=== PATIENT | male | born 1975 | race African-American/Black ===

== ENCOUNTER 2017-10-01 20:05 | Emergency (ER) | payer SELFPAY ==
[2017-10-01 20:07] VITALS: BP 166/81; PULSE 64; RESP 17; TEMP 36.7; O2SAT 99; BMI 26.6
[2017-10-01 20:46] LABS: Absolute Neutrophil Count 4.5 X10^3/uL (2.0-7.7); Basophil# 0.02 X10^3/uL; Basophil% 0.2 % (0-1); Eosinophil# 0.17 X10^3/uL; Hematocrit 45.7 % (40-54); Hemoglobin 15.6 g/dl (13.0-16.5); Lymphocyte % 38.8 % (19-41); Mean Corp Hgb Conc 34.1 g/gl (32-36); Mean Corpuscular Hgb 29.6 pg (27.0-32.0); Mean Corpuscular Volume 86.7 fL (80-94); Mean Platelet Vol. 9.7 fl (6.2-12.0); Monocyte# 0.46 X10^3/uL; Monocyte% 5.4 % (0-10); Neutrophil # 4.54 X10^3/uL (2.7-7.7); Neutrophil % 53.4 % (47-70); Platelet Count 326 K/mm3 (150-450); RBC Distribution Width CV 14.1 % (11.6-14.6); RBC Distribution Width SD 44.5 fl (35.1-43.9); Red Blood Count 5.27 M/mm3 (4.6-6.2); White Blood Count 8.5 K/mm3 (4.4-11.0)
[2017-10-01 20:47] LABS: POSITIVE COUNT NO; POSITIVE DIFFERENTIAL NO; POSITIVE MORPHOLOGY NO
[2017-10-01] MEDS: 0.9% Normal Saline 1,000 ML 1000 ML IV (20:47)
[2017-10-01] MEDS: Ondansetron 4 MG/2 ML Vial IV (20:47)
[2017-10-01 21:12] LABS: ALB/GLOB Ratio 1.1 RATIO (0.9-2.4); AST(SGOT) 37 U/L (15-37); Alanine Aminotransfer ALT/SGPT 48 U/L (16-61); Alkaline Phosphatase 100 U/L (45-117); Anion Gap 7 (5-15); BUN 9 mg/dL (7-18); BUN/Creat Ratio 8.2 RATIO (10-20); Calcium,Total 8.9 mg/dL (8.5-10.1); Chloride 104 mmol/L (98-107); EST Glomerular Filtration Rate 79 mL/min (>60); Est Glom Filt Rate - Afr Amer 95 mL/min (>60); Estimated Creatinine Clearance 89.27 ml/min; Globulin 3.7 g/dL (2.2-4.2); Glucose 118 mg/dL (74-106); Lipase 115 U/L (73-393); Potassium 4.8 mmol/L (3.5-5.1); Protein, Total 7.7 g/dL (6.4-8.2); Sodium Level 138 mmol/L (136-145)
[2017-10-01] MEDS: Dicyclomine 20 MG/2 ML Vial IM (21:47)
--- NOTE | 2017-10-01 22:09 | ED.VISSUMM ---
- ER Visit Summary Date of Service: 10/01/17 Chief Complaint: Abdominal pain History of Present Illness: The patient is a 41 M who presents with left upper quadrant abdominal pain that began yesterday. Patient states the pain is throbbing. Patient states the pain is over the left upper quadrant. Patient admits to some nausea and vomiting. Patient denies any hematemesis or coffee-ground emesis. Patient states the emesis is undigested food and stomach contents. Patient denies any diarrhea. Patient denies any melena or hematochezia. Patient denies any dysuria or urgency. Patient denies any flank pain. Patient denies any fevers or chills. Patient states he has been unable to eat anything today due to the pain and vomiting. Physical Examination: Vital signs are stable. Patient is afebrile. Patient is in no acute distress. Oral mucosa is pink and moist. Neck is supple. Trachea is midline. There is no JVD or lymphadenopathy noted. Heart was regular rate and rhythm. Lungs are clear and equal bilateral. There is good respiratory effort noted. Abdomen is soft. Bowel sounds are normal. There is left upper quadrant tenderness. There is no rebound or guarding noted. Cranial nerves II through XII are intact. There are no focal motor or sensory deficits noted. Test Results: CBC and comprehensive metabolic profile within normal limits. Lipase is normal. Emergency Department Course and Treatment: Patient was given IV fluids here. Patient was given Zofran and Bentyl. Patient felt better on reevaluation. Patient was given prescriptions for Bentyl and Zofran. Patient was instructed to follow-up with his primary care physician in 7-10 days. Patient was instructed to start with a liquid diet and advance to a bland diet and back to a regular diet as he starts to feel better. Patient understood and was agreeable with the plan. All questions were answered. Disposition: Discharge home Impression: Abdominal pain This note was generated with [employer] dictation software. It may contain incorrect words, spelling, and punctuation that were not noted in review of the chart prior to signing ED Disposition - Plan for ED Patient: Disposition: Home or Assisted Living Chief Complaint: Abd Pain Diagnosis: Left upper quadrant abdominal pain of unknown etiology Instructions: ED Abdominal Pain Unkn Cause Prescriptions: Ondansetron [Zofran Odt] 4 mg PO Q8H PRN PRN 4 Days #12 tab PRN Reason: Nausea/Vomiting Dicyclomine HCl [Bentyl] 10 mg PO ACHS PRN #20 cap PRN Reason: Gi Cramping Referrals: Care Physician,No Primary [Primary Care Provider] -
[2017-10-01 22:22] VITALS: BP 148/104; PULSE 68; RESP 17; O2SAT 98
[2017-10-01 22:25] VITALS: TEMP 36.4
--- NOTE | 2017-10-01 22:26 | ED.DCSUM_ITS ---
- ER Visit Summary Date of Service: 10/01/17 Chief Complaint: Abdominal pain History of Present Illness: The patient is a 41 M who presents with left upper quadrant abdominal pain that began yesterday. Patient states the pain is throbbing. Patient states the pain is over the left upper quadrant. Patient admits to some nausea and vomiting. Patient denies any hematemesis or coffee- ground emesis. Patient states the emesis is undigested food and stomach contents. Patient denies any diarrhea. Patient denies any melena or hematochezia. Patient denies any dysuria or urgency. Patient denies any flank pain. Patient denies any fevers or chills. Patient states he has been unable to eat anything today due to the pain and vomiting. Physical Examination: Vital signs are stable. Patient is afebrile. Patient is in no acute distress. Oral mucosa is pink and moist. Neck is supple. Trachea is midline. There is no JVD or lymphadenopathy noted. Heart was regular rate and rhythm. Lungs are clear and equal bilateral. There is good respiratory effort noted. Abdomen is soft. Bowel sounds are normal. There is left upper quadrant tenderness. There is no rebound or guarding noted. Cranial nerves II through XII are intact. There are no focal motor or sensory deficits noted. Test Results: CBC and comprehensive metabolic profile within normal limits. Lipase is normal. Emergency Department Course and Treatment: Patient was given IV fluids here. Patient was given Zofran and Bentyl. Patient felt better on reevaluation. Patient was given prescriptions for Bentyl and Zofran. Patient was instructed to follow-up with his primary care physician in 7-10 days. Patient was instructed to start with a liquid diet and advance to a bland diet and back to a regular diet as he starts to feel better. Patient understood and was agreeable with the plan. All questions were answered. Disposition: Discharge home Impression: Abdominal pain This note was generated with [employer] dictation software. It may contain incorrect words, spelling, and punctuation that were not noted in review of the chart prior to signing ED Disposition - Plan for ED Patient: Disposition: Home or Assisted Living Chief Complaint: Abd Pain Diagnosis: Left upper quadrant abdominal pain of unknown etiology Instructions: ED Abdominal Pain Unkn Cause Prescriptions: Ondansetron [Zofran Odt] 4 mg PO Q8H PRN PRN 4 Days #12 tab PRN Reason: Nausea/Vomiting Dicyclomine HCl [Bentyl] 10 mg PO ACHS PRN #20 cap PRN Reason: Gi Cramping Referrals: Care Physician,No Primary [Primary Care Provider] -
== END 2017-10-01 22:35 | disposition home or self-care (01) ==
PROVIDERS: Emergency Provider Emergency Medicine
DX: R10.12 Left upper quadrant pain (principal); R11.2 Nausea with vomiting, unspecified; J45.909 Unspecified asthma, uncomplicated; Z72.0 Tobacco use
CPT/HCPCS: 80053; 83690; 85025; 96361; 96372; 96374; 99284; J7030; J2405

== ENCOUNTER 2018-01-16 08:29 | Emergency (ER) | payer SELFPAY ==
[2018-01-16 08:30] VITALS: BP 127/91; PULSE 93; RESP 18; TEMP 36.7; O2SAT 96; BMI 25.8
--- NOTE | 2018-01-16 08:53 | ED.VISSUMM ---
- ER Visit Summary Date of Service: 01/16/18 Chief Complaint: Abdominal pain, nausea, vomiting History of Present Illness: The patient is a 42 M who presents with the above symptoms. He has had this episode for 3 days. He describes cramping and sharp pains in his left upper quadrant. Nothing makes it better or worse. He has had nausea with vomiting with it. Denies diarrhea but has had some constipation. No urinary symptoms. He has been seen here and at [facility] for the same thing. He was told he had an ulcer. He has been taking Carafate at home is not helping. He did not follow up with any physicians. He denies any fevers. Physical Examination: Vital signs reviewed. HEENT exam unremarkable. Heart is regular rate and rhythm without murmurs. Lungs are clear to auscultation. Abdomen is soft with tenderness in the left upper quadrant mildly. Extremities reveal no edema. Skin exam normal. Neurologic exam normal. Test Results: Laboratory studies are unremarkable except for hemoglobin of 18.4, potassium 3.3. Total bilirubin 1.6 Emergency Department Course and Treatment: Patient was given a GI cocktail and Zofran and feels better. I will add omeprazole to his Carafate. He will follow-up with his PCP Treatment Plan: [] Disposition: Discharge Impression: Abdominal pain This note was generated with [employer] dictation software. It may contain incorrect words, spelling, and punctuation that were not noted in review of the chart prior to signing ED Disposition - Plan for ED Patient: Chief Complaint: Nausea/Vomiting Referrals: Care Physician,No Primary [Primary Care Provider] -
[2018-01-16] MEDS: Ondansetron 4 MG/2 ML Vial IV (09:27)
[2018-01-16] MEDS: Mag Hydrox/Al Hydrox/Simeth 30 ML UDC PO (09:27)
[2018-01-16 10:02] LABS: AST(SGOT) 16 U/L (15-37); Alanine Aminotransfer ALT/SGPT 41 U/L (16-61); Albumin, Serum 4.7 g/dL (3.2-5.0); Alkaline Phosphatase 103 U/L (45-117); Anion Gap 12 (5-15); BUN 18 mg/dL (7-18); BUN/Creat Ratio 14.2 RATIO (10-20); Calcium,Total 9.8 mg/dL (8.5-10.1); Chloride 102 mmol/L (98-107); Creatinine, Serum 1.27 mg/dL (0.70-1.30); EST Glomerular Filtration Rate 66 mL/min (>60); Est Glom Filt Rate - Afr Amer 80 mL/min (>60); Estimated Creatinine Clearance 76.55 ml/min; Globulin 4.6 g/dL (2.2-4.2); Glucose 120 mg/dL (74-106); Lipase 137 U/L (73-393); Potassium 3.3 mmol/L (3.5-5.1); Protein, Total 9.3 g/dL (6.4-8.2); Sodium Level 136 mmol/L (136-145)
[2018-01-16 10:13] LABS: Absolute Lymphocyte Count 3.42 X10^3/ul (0.83-4.51); Absolute Neutrophil Count 5.4 X10^3/uL (2.0-7.7); Basophil# 0.02 X10^3/uL; Basophil% 0.2 % (0-1); Eosinophil# 0.03 X10^3/uL; Eosinophils% 0.3 % (0-5); Hemoglobin 18.4 g/dl (13.0-16.5); Lymphocyte # 3.42 X10^3/ul (4.0); Mean Corp Hgb Conc 36.1 g/gl (32-36); Mean Corpuscular Hgb 29.4 pg (27.0-32.0); Mean Corpuscular Volume 81.5 fL (80-94); Mean Platelet Vol. 9.7 fl (6.2-12.0); Monocyte# 0.88 X10^3/uL; Neutrophil # 5.39 X10^3/uL (2.7-7.7); Neutrophil % 55.2 % (47-70); Platelet Count 450 K/mm3 (150-450); RBC Distribution Width SD 41.9 fl (35.1-43.9); Red Blood Count 6.26 M/mm3 (4.6-6.2); White Blood Count 9.8 K/mm3 (4.4-11.0)
[2018-01-16 10:17] LABS: Differential Indicated SCAN CRITERIA MET; POSITIVE COUNT NO; POSITIVE DIFFERENTIAL NO; POSITIVE MORPHOLOGY YES
--- NOTE | 2018-01-16 10:45 | ED.DEP ---
ED Disposition - Plan for ED Patient: Disposition: Home or Assisted Living Chief Complaint: Nausea/Vomiting Instructions: ED Nausea Vomiting Prescriptions: Omeprazole [Prilosec] 20 mg PO DAILY #30 cap Referrals: Care Physician,No Primary [Primary Care Provider] - Emmy Zacarias MD [STAFF PHYSICIAN] -
[2018-01-16 11:23] VITALS: BP 137/98; PULSE 84; RESP 16; O2SAT 98
== END 2018-01-16 11:24 | disposition home or self-care (01) ==
PROVIDERS: Emergency Provider Emergency Medicine
DX: R10.9 Unspecified abdominal pain (principal); R11.2 Nausea with vomiting, unspecified; J45.909 Unspecified asthma, uncomplicated
CPT/HCPCS: 80053; 83690; 85025; 96374; 99285; A4216; J2405

== ENCOUNTER 2018-05-02 11:41 | Emergency (ER) | payer SELFPAY ==
[2018-05-02 11:42] VITALS: BP 128/66; PULSE 73; RESP 16; TEMP 36.6; O2SAT 100; BMI 27.7
--- NOTE | 2018-05-02 12:46 | ED.DCSUM_ITS ---
- ER Visit Summary Date of Service: 05/02/18 Chief Complaint: Facial swelling History of Present Illness: The patient is a 42 M who states that for the past 1-2 weeks he has had pain in a right lower molar. He has not yet made a dental appointment. States now he is got swelling involving the mandible. No fevers. No pain with opening or closing his mouth Physical Examination: Afebrile vital signs stable Patient is focal gum swelling focal dental decay and tenderness on tooth per cussion of his right lower molar. There is no trismus. No floor the mouth swelling Emergency Department Course and Treatment: Patient will be prescribed Motrin and Pen-Vee K. He is to see dentistry as soon as possible. Impression: 1. Dental abscess This note was generated with [employer] dictation software. It may contain incorrect words, spelling, and punctuation that were not noted in review of the chart prior to signing ED Disposition - Plan for ED Patient: Disposition: Home or Assisted Living Chief Complaint: Dental Instructions: Dental Abscess Prescriptions: Ibuprofen [Motrin] 800 mg PO TID PRN PRN #20 tab PRN Reason: Pain Penicillin V Potassium 500 mg PO 4X/DAY #40 tab Additional Instructions: Follow up with dentistry as soon as possible
--- NOTE | 2018-05-02 12:57 | ED.RN ---
DISCHARGE INSTRUCTIONS GIVEN TO AND REVIEWED WITH PATIENT, PATIENT DENIES QUESTIONS OR CONCERNS AND VOICES UNDERSTANDING OF DISCHARGE INSTRUCTIONS. PT AMBULATES OUT OF ROOM WITHOUT DIFFICULTY.
== END 2018-05-02 12:58 | disposition home or self-care (01) ==
LOC: ED 12:51
PROVIDERS: Emergency Provider Emergency Medicine
DX: K04.7 Periapical abscess without sinus (principal); K02.9 Dental caries, unspecified
CPT/HCPCS: 99282

== ENCOUNTER 2019-07-22 05:10 | Emergency (ER) | payer BC, SELFPAY ==
[2019-07-22 05:11] VITALS: BP 138/87; PULSE 75; RESP 18; TEMP 37.1; O2SAT 98; BMI 32.1
[2019-07-22 05:13] VITALS: BP 138/87; PULSE 75; RESP 18; TEMP 37.1; O2SAT 98
--- NOTE | 2019-07-22 05:17 | ED.DCSUM_ITS ---
- ER Visit Summary Date of Service: 07/22/19 Chief Complaint: Tooth pain History of Present Illness: The patient is a 43 M who has tooth pain. He states it started early this morning. He noticed some left-sided facial swelling. He has not had a fever. The pain is mostly on the left-hand side. Worse with movement. He took 1 of his 's pain pills and it helped mildly. He does not have a dentist. He does have some broken teeth that he has not had looked at. He is not a smoker. Physical Examination: Vital signs are reviewed. Facial exam reveals some mild left-sided facial swelling. He has widespread dental decay inside of the mouth. He has a broken tooth that #14. This is tender in this area. There is no gingival abscesses. No Melvin's angina. Swallowing his secretions normally. Test Results: None performed Emergency Department Course and Treatment: Patient will be treated with penicillin and naproxen. I will give him dental referrals Treatment Plan: [] Disposition: Discharge Impression: Odontalgia This note was generated with [employer] dictation software. It may contain incorrect words, spelling, and punctuation that were not noted in review of the chart prior to signing ED Disposition - Plan for ED Patient: Disposition: Home or Assisted Living Instructions: Dental Pain Prescriptions: Naproxen [Naprosyn] 500 mg PO BID PRN #20 tab Transmission Status: Pending to [facility] [place] Penicillin V Potassium 500 mg PO 4X/DAY #40 tab Transmission Status: Pending to [facility] [place] Referrals: Care Physician,No Primary [Primary Care Provider] -
[2019-07-22] MEDS: Naproxen 500 MG Tablet PO (05:27)
[2019-07-22] MEDS: Penicillin Vk 250 MG Tablet 500 MG PO (05:27)
== END 2019-07-22 05:29 | disposition home or self-care (01) ==
LOC: ED 05:22
PROVIDERS: Emergency Provider Emergency Medicine
DX: K08.89 Other specified disorders of teeth and supporting structures (principal)
CPT/HCPCS: 99283

== ENCOUNTER 2019-09-13 08:34 | Emergency (ER) | payer BC, SELFPAY ==
[2019-09-13 08:36] VITALS: BP 137/92; PULSE 72; RESP 14; TEMP 36.3; O2SAT 98; BMI 26.8
[2019-09-13] MEDS: Dicyclomine 20 MG/2 ML Vial IM (09:03)
[2019-09-13] MEDS: Ondansetron 4 MG/2 ML Vial IV (09:03)
[2019-09-13] MEDS: 0.9% Normal Saline 1,000 ML 1000 ML IV (09:03)
--- NOTE | 2019-09-13 09:04 | ED.VIS.GEN ---
History of Present Illness Chief Complaint: Nausea/Vomiting Informant: Patient Onset: Days Context: Gradual Onset Timing: Continuous Current Severity: Moderate Maximum Severity: Moderate Narrative: The patient is a 43-year-old male no significant medical history that presents to the emergency department with nausea and vomiting. Patient states his symptoms been going on for the past 48 hours. He states that he does have reflux. He started taking Carafate which seemed to help with the pain, but has had persistent vomiting. He states he just cannot keep anything down. There is been no blood in the emesis. He denies any fevers or chills. He does have some abdominal cramping with vomiting, but no persistent pain. He denies any new foods or exposures. He has no history of inflammatory bowel disease. Prior similar symptoms: No Recent Illness/Hospitalization: No Past Medical History - Allergies and Home Meds Allergies/Adverse Reactions: Allergies No Known Allergies Allergy (Verified 09/13/19 08:36) Primary Care Physician: Care Physician,No Primary [Primary Care Provider] - Prior records reviewed: Yes Past Medical History: None Surgical History: noncontributory Smoking Status: Current some day smoker Review of Systems General: Denies: Chills, Fever, Sweats Eyes: Denies: Visual changes - bilaterally, Diplopia ENT: Denies: Rhinorrhea, Sore throat Cardiovascular: Denies: Chest pain, Palpitations Respiratory: Denies: Dyspnea, Cough, Dyspnea on exertion Gastrointestinal: Reports: Abdominal pain, Nausea, Vomiting. Denies: Diarrhea, Melena, Hematochezia Genitourinary: Denies: Dysuria, Hematuria, Frequency Musculoskeletal: Denies: Back pain, Extremity Pain Skin: Denies: Rash, Wounds Neurological: Denies: Headache, Weakness, Numbness Physical Exam Vital Signs/Narrative: Vital Signs Temp Pulse Resp BP Pulse Ox 09/13/19 08:36 97.3 F L 72 14 137/92 H 98 Inital Vital Signs reviewed: Yes General: Well nourished, Well developed, No Acute Distress Head: Normocephalic, Atraumatic Eyes: Perrl, EOMI ENT: Moist mucous membranes, No rhinorrhea Neck: Supple, Nontender Cardiovascular: Regular rate, Regular rhythm, No murmurs Respiratory: No distress, CTA bilaterally, Chest nontender Abdomen: Soft, Nontender, Nondistended, Normal bowel sounds Back: Nontender, Normal Inspection Extremities: Nontender, No edema Skin: Normal color, No rash Neurological: Alert, Oriented x3, Cranial nerves II-XII grossly intact, Normal Strength, Normal Sensation Psychological: Normal affect, Normal Mood Diagnostic/Tx/Re-eval Abnormal Lab Results 09/13/19 09/13/19 08:56 08:56 WBC 10.4 RBC 6.02 Hgb 17.8 H Hct 51.6 MCV 85.7 MCH 29.6 MCHC 34.5 RDW Std Deviation 42.6 RDW Coeff of Demarco 13.6 Plt Count 352 MPV 9.4 Immature Gran % (Auto) 0.700 Neut % (Auto) 58.8 Lymph % (Auto) 30.6 [place] % (Auto) 9.6 Eos % (Auto) 0.1 Baso % (Auto) 0.2 Absolute Neuts (auto) 6.2 Absolute Lymphs (auto) 3.19 Nucleated RBC % 0 Sodium 134 L Potassium 4.1 Chloride 103 Carbon Dioxide 25.0 Anion Gap 6 BUN 18 Creatinine 1.33 H Estim Creat Clear Calc 72.35 Est GFR (MDRD) Af Amer 76 Est GFR (MDRD) Non-Af 62 BUN/Creatinine Ratio 13.5 Glucose 137 H Calcium 9.5 Total Bilirubin 1.40 H AST 49 H ALT 55 Alkaline Phosphatase 95 Total Protein 8.9 H Albumin 4.8 Globulin 4.1 Albumin/Globulin Ratio 1.2 Lipase 146 - Medical Decision Making Patient presents with nausea and vomiting with abdominal cramping. He states he has no pain at rest. There is been no blood in the emesis. He is well-appearing with no focal tenderness on exam. Screening labs are obtained which are relatively unremarkable. Patient was given fluids Zofran and Bentyl. He had market improvement of his symptoms. He will continue symptomatic therapy. He was counseled on foods to avoid. He will be discharged home. Impression 1. Nausea and vomiting ED Disposition - Plan for ED Patient: Instructions: ED Nausea Vomiting Adult Prescriptions: Dicyclomine HCl [Bentyl] 20 mg PO TIDAC #20 cap Prescription Printed Ondansetron [Zofran Odt] 4 mg PO Q8H PRN PRN #10 tab PRN Reason: Nausea Prescription Printed Referrals: Care Physician,No Primary [Primary Care Provider] -
[2019-09-13 09:05] LABS: Absolute Lymphocyte Count 3.19 X10^3/uL (0.83-4.51); Absolute Neutrophil Count 6.2 X10^3/uL (2.0-7.7); Basophil# 0.02 X10^3/uL; Basophil% 0.2 % (0-1); Eosinophil# 0.01 X10^3/uL; Eosinophils% 0.1 % (0-5); Hematocrit 51.6 % (40-54); Hemoglobin 17.8 g/dL (13.0-16.5); Lymphocyte # 3.19 X10^3/ul (4.0); Lymphocyte % 30.6 % (19-41); Mean Corp Hgb Conc 34.5 g/dL (32-36); Mean Corpuscular Hgb 29.6 pg (27.0-32.0); Mean Corpuscular Volume 85.7 fL (80-94); Mean Platelet Vol. 9.4 fl (6.2-12.0); Monocyte% 9.6 % (0-10); NRBC Flagged by Analyzer 0 % (0-5); Neutrophil # 6.15 X10^3/uL (2.7-7.7); Neutrophil % 58.8 % (47-70); Platelet Count 352 K/mm3 (150-450); RBC Distribution Width CV 13.6 % (11.6-14.6); RBC Distribution Width SD 42.6 fl (35.1-43.9); Red Blood Count 6.02 M/mm3 (4.6-6.2); White Blood Count 10.4 K/mm3 (4.4-11.0)
[2019-09-13 09:39] LABS: ALB/GLOB Ratio 1.2 RATIO (0.9-2.4); AST(SGOT) 49 U/L (15-37); Alanine Aminotransfer ALT/SGPT 55 U/L (16-61); Albumin, Serum 4.8 g/dL (3.2-5.0); Alkaline Phosphatase 95 U/L (45-117); Anion Gap 6 (5-15); BUN 18 mg/dL (7-18); BUN/Creat Ratio 13.5 RATIO (10-20); Calcium,Total 9.5 mg/dL (8.5-10.1); Chloride 103 mmol/L (98-107); Creatinine, Serum 1.33 mg/dL (0.70-1.30); EST Glomerular Filtration Rate 62 mL/min (>60); Est Glom Filt Rate - Afr Amer 76 mL/min (>60); Estimated Creatinine Clearance 72.35 ml/min; Globulin 4.1 g/dL (2.2-4.2); Glucose 137 mg/dL (74-106); Lipase 146 U/L (73-393); Potassium 4.1 mmol/L (3.5-5.1); Protein, Total 8.9 g/dL (6.4-8.2); Sodium Level 134 mmol/L (136-145)
[2019-09-13 10:12] VITALS: BP 118/69; PULSE 72; RESP 15; O2SAT 98
== END 2019-09-13 10:13 | disposition home or self-care (01) ==
LOC: ED 09:46
PROVIDERS: Emergency Provider Emergency Medicine
DX: R11.2 Nausea with vomiting, unspecified (principal); F17.200 Nicotine dependence, unspecified, uncomplicated
CPT/HCPCS: 80053; 83690; 85025; 96361; 96372; 96374; 99283; J7030; A4216; J2405

== ENCOUNTER 2020-03-13 22:29 | Emergency (ER) | payer BC, SELFPAY ==
[2020-03-13 22:30] VITALS: BP 130/74; PULSE 72; RESP 18; TEMP 36.6; O2SAT 99; BMI 27.3
--- NOTE | 2020-03-13 22:40 | ED.VIS.GEN ---
History of Present Illness Chief Complaint: General Illness Informant: Patient Onset: Days Context: Gradual Onset Timing: Continuous Current Severity: Moderate Maximum Severity: Moderate Narrative: The patient is a 44-year-old male that presents to the emergency department with bilateral ear pain. The patient states he has had a recent dental abscess. He finished his antibiotics and seem to be getting better. He states that over the past few days, he has had a sensation of fluid in both ears. He denies fevers or chills. He states if he turns his head, it feels like the fluid is moving. He is scheduled to see dentistry, but was concerned with his symptoms and wanted to be evaluated today. He states very upfront that he cannot miss work. He is otherwise been in his normal state of health. Prior similar symptoms: Yes Recent Illness/Hospitalization: No Past Medical History - Allergies and Home Meds Allergies/Adverse Reactions: Allergies No Known Allergies Allergy (Verified 09/13/19 08:36) Primary Care Physician: Care Physician,No Primary [Primary Care Provider] - Prior records reviewed: Yes Past Medical History: None Surgical History: noncontributory Smoking Status: Light Smoker (<10/day) Review of Systems General: Denies: Chills, Fever, Sweats Eyes: Denies: Visual changes - bilaterally, Diplopia ENT: Reports: Bilateral ear pain. Denies: Rhinorrhea, Sore throat Cardiovascular: Denies: Chest pain, Palpitations Respiratory: Denies: Dyspnea, Cough, Dyspnea on exertion Gastrointestinal: Denies: Abdominal pain, Nausea, Vomiting, Diarrhea, Melena, Hematochezia Genitourinary: Denies: Dysuria, Hematuria, Frequency Musculoskeletal: Denies: Back pain, Extremity Pain Skin: Denies: Rash, Wounds Neurological: Denies: Headache, Weakness, Numbness Physical Exam Vital Signs/Narrative: Vital Signs Temp Pulse Resp BP Pulse Ox 03/13/20 22:30 97.8 F 72 18 130/74 H 99 Inital Vital Signs reviewed: Yes General: Well nourished, Well developed, No Acute Distress Head: Normocephalic, Atraumatic Eyes: Perrl, EOMI ENT: Moist mucous membranes, No rhinorrhea, - - TMs do show serous fluid, but no erythema or distortion of landmarks. Mastoid nontender bilaterally. Oromucosa is pink and moist. He does have impacted wisdom tooth #17 with erythema of the baseline. No Melvin angina. Neck: Supple, Nontender Cardiovascular: Regular rate, Regular rhythm, No murmurs Respiratory: No distress, CTA bilaterally, Chest nontender Abdomen: Soft, Nontender, Nondistended, Normal bowel sounds Back: Nontender, Normal Inspection Extremities: Nontender, No edema Skin: Normal color, No rash Neurological: Alert, Oriented x3, Cranial nerves II-XII grossly intact, Normal Strength, Normal Sensation Psychological: Normal affect, Normal Mood Diagnostic/Tx/Re-eval - Medical Decision Making Patient presents with serous otitis. There is no evidence of acute infection. However, he does have dental abscess. There is no Melvin angina. The submental space is soft. He was counseled on [id number] remedies to increase his ear drainage, but I will cover him with Augmentin for the dental abscess. He is comfortable with this plan of care and will be discharged home. Impression 1. Bilateral serous otitis 2. Dental abscess ED Disposition - Plan for ED Patient: Instructions: ED SEROUS OTITIS MEDIA Adult, ED ABSCESS DENTAL Prescriptions: Amox/Clavulanate Tablet [Augmentin Tablet] 875 mg PO Q12H #20 tab Prescription Printed Referrals: Care Physician,No Primary [Primary Care Provider] -
[2020-03-13] MEDS: Amox/Clavulanate 875 MG Tablet PO (22:42)
[2020-03-13 23:00] VITALS: BP 130/74; PULSE 72; RESP 18; O2SAT 99
== END 2020-03-13 23:00 | disposition home or self-care (01) ==
LOC: ED 22:56
PROVIDERS: Emergency Provider Emergency Medicine
DX: H65.93 Unspecified nonsuppurative otitis media, bilateral (principal); K04.7 Periapical abscess without sinus; F17.200 Nicotine dependence, unspecified, uncomplicated
CPT/HCPCS: 99283

== ENCOUNTER 2020-04-01 14:07 | Emergency (ER) | payer BC, SELFPAY ==
[2020-04-01 14:08] VITALS: BP 152/93; PULSE 70; RESP 17; TEMP 36.7; O2SAT 100; BMI 27.3
--- NOTE | 2020-04-01 15:12 | ED.VISSUMM ---
- ER Visit Summary Date of Service: 04/01/20 Chief Complaint: Stomach ache History of Present Illness: The patient is a 44 M with abdominal pain started yesterday after lunch. Seem to be worse with food. The pain was periumbilical and did not radiate. Associated with nausea and diarrhea. No vomiting. No fevers. No urinary symptoms. No history of abdominal surgery. His symptoms recurred this morning without eating, so he decided to get checked out. He is currently symptom-free. Physical Examination: Afebrile and vital signs unremarkable. Alert and oriented. No acute distress. Heart regular rate and rhythm. Lungs clear. Abdomen soft, nontender, nondistended, normal bowel sounds. Normal inspection. Skin appears normal. Test Results: CBC, CMP, lipase, urinalysis pending. Emergency Department Course and Treatment: Patient has periumbilical pain with nausea and diarrhea. His symptoms have resolved. His exam is unremarkable. Nothing focal, so will hold off on CAT scan at this time. We will check some labs and urine. Patient declined pain medicine and nausea medicine on my initial evaluation. CBC normal. CMP and lipase unremarkable. Urinalysis normal. Given that his pain has resolved, he has no abnormal findings on exam. His vitals and labs are all reassuring, I did not feel that imaging was indicated. I did not believe the risks outweigh the benefits. He may have early appendicitis or another early process, and was encouraged to return right away if symptoms recurred or worsened. We will treat with Pepcid and Zofran. Follow-up with primary care. Treatment Plan: As above Disposition: Discharge Impression: Nausea, abdominal pain This note was generated with [employer] dictation software. It may contain incorrect words, spelling, and punctuation that were not noted in review of the chart prior to signing ED Disposition - Plan for ED Patient: Referrals: Care Physician,No Primary [Primary Care Provider] -
[2020-04-01] MEDS: 0.9% Normal Saline 1,000 ML 1000 ML IV (16:07)
[2020-04-01 16:19] LABS: Bacteria 0 SEEN /hpf (None Seen); Red Blood Cells-Urine 0 SEEN /hpf (0-5); Squamous Epithelial Cells - UA 0 SEEN /hpf (0-5); White Blood Cells 0 SEEN /hpf (0-5)
[2020-04-01 16:20] LABS: Color, Urine Yellow (Yellow); Glucose, Dipstick Normal (Normal); Ketone-Dipstick Negative (Negative); Leukocyte Esterase-Dipstick Negative /ul (Negative); Nitrite-Dipstick Negative (Negative); Occult Blood-Urine Negative /ul (Negative); Protein-Dipstick 15 mg/dl (Negative); Specific Gravity, Urine 1.015 (1.002-1.030); Urine Bilirubin Dipstick Negative (Negative); Urine Clarity Clear (Clear); Urine Urobilinogen 4 mg/dl (Normal); Urine pH 6.5 (5.0 - 8.0)
[2020-04-01 16:24] LABS: ALB/GLOB Ratio 1.2 RATIO (0.9-2.4); AST(SGOT) 27 U/L (15-37); Alanine Aminotransfer ALT/SGPT 45 U/L (16-61); Albumin, Serum 3.7 g/dL (3.2-5.0); Alkaline Phosphatase 90 U/L (45-117); Anion Gap 2 (5-15); BUN 11 mg/dL (7-18); BUN/Creat Ratio 10.9 RATIO (10-20); Calcium,Total 8.6 mg/dL (8.5-10.1); Chloride 110 mmol/L (98-107); Creatinine, Serum 1.01 mg/dL (0.70-1.30); EST Glomerular Filtration Rate 86 mL/min (>60); Est Glom Filt Rate - Afr Amer 104 mL/min (>60); Estimated Creatinine Clearance 94.31 ml/min; Globulin 3.1 g/dL (2.2-4.2); Glucose 97 mg/dL (74-106); Lipase 88 U/L (73-393); Protein, Total 6.8 g/dL (6.4-8.2); Sodium Level 142 mmol/L (136-145)
[2020-04-01 16:33] LABS: Absolute Lymphocyte Count 2.85 X10^3/uL (0.83-4.51); Absolute Neutrophil Count 3.5 X10^3/uL (2.0-7.7); Basophil# 0.05 X10^3/uL; Basophil% 0.7 % (0-1); Eosinophil# 0.34 X10^3/uL; Eosinophils% 4.6 % (0-5); Hematocrit 45.6 % (40-54); Hemoglobin 14.8 g/dL (13.0-16.5); Lymphocyte # 2.85 X10^3/ul (4.0); Lymphocyte % 38.7 % (19-41); Mean Corp Hgb Conc 32.5 g/dL (32-36); Mean Corpuscular Hgb 29.7 pg (27.0-32.0); Mean Corpuscular Volume 91.6 fL (80-94); Mean Platelet Vol. 9.9 fl (6.2-12.0); Monocyte# 0.57 X10^3/uL; Monocyte% 7.7 % (0-10); NRBC Flagged by Analyzer 0 % (0-5); Neutrophil # 3.52 X10^3/uL (2.7-7.7); Neutrophil % 47.9 % (47-70); Platelet Count 331 K/mm3 (150-450); RBC Distribution Width CV 14.4 % (11.6-14.6); RBC Distribution Width SD 48.2 fl (35.1-43.9); Red Blood Count 4.98 M/mm3 (4.6-6.2); White Blood Count 7.4 K/mm3 (4.4-11.0)
[2020-04-01 16:45] LABS: Mucous, Urine 1+ /hpf (<or=2+)
--- NOTE | 2020-04-01 16:51 | ED.DEP ---
ED Disposition - Plan for ED Patient: Instructions: ED Unknown Causes of Abdominal Pain Male Prescriptions: Famotidine [Pepcid] 20 mg PO BID #28 tab Prescription Printed Ondansetron [Zofran Odt] 4 mg PO Q8H PRN PRN #10 tab PRN Reason: Nausea Prescription Printed Referrals: Marivel Lujan [NON-STAFF] -
[2020-04-01 17:28] VITALS: BP 146/90; PULSE 76; RESP 18
== END 2020-04-01 17:29 | disposition home or self-care (01) ==
LOC: ED 15:21
PROVIDERS: Emergency Provider Emergency Medicine
DX: R10.33 Periumbilical pain (principal); R11.0 Nausea; Z72.0 Tobacco use
CPT/HCPCS: 80053; 81001; 83690; 85025; 96360; 99283; J7030; A4216

== ENCOUNTER 2020-11-01 12:55 | Emergency (ER) | payer BC, SELFPAY ==
[2020-11-01 12:56] VITALS: BP 135/59; PULSE 79; RESP 15; TEMP 36.2; O2SAT 97; BMI 27.5
[2020-11-01 14:28] VITALS: BP 141/79; PULSE 79; RESP 14; O2SAT 97
--- NOTE | 2020-11-01 14:32 | RAD_ITS ---
STUDY: X-RAY - RIGHT SHOULDER REASON FOR EXAM: Male, 44 years old. Injury/Pain TECHNIQUE: view(s) of the shoulder. COMPARISON: None. FINDINGS: Normal glenohumeral articulation. Normal acromioclavicular joint. Normal acromion. Normal humeral head and visualized proximal humerus. The soft tissue structures are unremarkable. Normal visualized pulmonary apex. RAD/Shoulder min 2 Views IMPRESSION: Normal x-ray examination of the shoulder. Electronically Signed: Harry Gonzales, at 15:41 EDT Tel , Service support ,
--- NOTE | 2020-11-01 19:01 | EX.ED.UPPERE ---
HPI History of Present Illness HPI Narrative: Patient presents with right shoulder pain that began yesterday. Patient states it has gradually gotten worse but became acutely worse today while he was at work. Patient states the pain is sharp. Patient states pain is worse with movement. Patient states that a friend gave him some ibuprofen today at work which did help. Patient denies any paresthesias or weakness. Patient denies any specific trauma or injury. Patient states the pain does radiate across his back and into his neck. Chief Complaint: Upper Extremity Injury Informant: patient Onset/Context/Timing Onset: Yesterday Context: Gradual Onset Timing: Continuous Quality of Pain: Sharp Location: Posterior right shoulder Worsened by: Movement Relieved by: Ibuprofen Associated Symptoms Associated Symptoms: Negative for Parasthesia, Weakness and Loss of Funtion [facility] Medical History (Updated 11/01/20 @ 19:[address] Cory Perez DO) Asthma Home Medications famotidine 20 mg PO BID #28 tab 04/01/20 [Rx Last Taken Unknown] ondansetron 4 mg PO Q8H PRN PRN #10 tab 04/01/20 [Rx Last Taken Unknown] ibuprofen 600 mg PO Q8H PRN PRN #20 tablet 11/01/20 [Rx Last Taken Unknown] Allergy/AdvReac Type Severity Reaction Status Date / Time No Known Allergies Allergy Verified 11/01/20 12:56 no surgical history Social History Smoking Status: Former smoker ROS ROS ED Constitutional Constitutional ED: Denies chills or fever(s) Eyes Eyes: Denies blurry vision or change in vision ENT ENT ED: Denies rhinorrhea or sore throat Cardiovascular Cardiovascular: Denies chest pain or palpitations Respiratory/Chest Respiratory/Chest: Denies cough or dyspnea Gastrointestinal Gastrointestinal: Denies nausea or vomiting Genitourinary Genitourinary ED: Denies dysuria or hematuria Musculoskeletal Musculoskeletal: Reports back pain and neck pain Integumentary Denies abscess or rash Neurologic Neurologic: Denies headache(s) or weakness Allergic/Immunologic Allergic/Immunologic ED: Denies mouth swelling or urticaria EXAM Physical Exam Const Vital Signs: 11/01/20 12:56 11/01/20 14:28 Temperature 97.2 F L Temperature Source Temporal Pulse Rate 79 79 Respiratory Rate 15 14 Blood Pressure 135/59 H 141/79 H Blood Pressure Mean 84 99 Pulse Ox 97 97 Oxygen Delivery Method Room Air Room Air Positive well nourished and well developed General Appearance ED: well developed HEENT Reports moist mucous membranes Neck full ROM and supple Extremity Extremity Narrative: There is tenderness over the posterior aspect of the right shoulder and scapular area. There is some muscle spasm over the right parascapular muscles. There is no bony crepitance or step-off. There is no deformity noted. Range of motion was slightly limited in all motions of the right shoulder secondary to pain. Strength is 5/5 bilaterally in the upper extremities. Radial pulses are equal bilaterally. Sensation was intact to light touch in the radial, median, ulnar, and axillary areas. Neuro oriented x3, CN's II-XII intact bilaterally, moves all extremities, no focal motor deficits and no sensory deficits noted Sensorium / Orientation: alert Psych mental status grossly normal MDM MDM MDM Narrative Medical decision making narrative: X-rays of the right shoulder were obtained. There are 4 views. On my interpretation, there is no acute fracture. There is no dislocation. There is no soft tissue swelling. Radiologist also interpreted the x-rays and agrees. Patient was advised of his findings. Patient was instructed to use ice to the area. Patient was given a prescription for ibuprofen. Patient was instructed to follow-up with his primary care physician in 5 to 7 days. Patient understood and was agreeable with the plan. All questions were answered. Radiography Diagnostic Testing: Radiology Impression Shoulder X-Ray 11/01/20 14:32 IMPRESSION: Normal x-ray examination of the shoulder. Electronically Signed: Harry Gonzales, at 15:41 EDT Tel , Service support , Discharge Plan Triage Chief Complaint: Upper Extremity Injury ED Provider: Cory Perez Dx/Rx/DC Orders Clinical Impression: Muscle strain of right shoulder region Instructions: ED Shoulder Pain, Uncertain Cause Prescriptions: New ibuprofen 600 MG tablet 600 mg PO Q8H PRN PRN (Reason: pain) Qty: 20 RF: 0 No Action famotidine 20 MG tablet 20 mg PO BID Qty: 28 RF: 0 ondansetron 4 MG tablet 4 mg PO Q8H PRN PRN (Reason: Nausea) Qty: 10 RF: 0 Stand Alone Forms: ED Work / School Excuse Primary Care Provider: Care Physician,No Primary Referrals: Marivel Lujan [NON-STAFF] - 5-7 Days Care Physician,No Primary [Primary Care Provider] - Disposition Disposition: Home, Self Care Discharge Date/Time: 11/01/20 16:37
== END 2020-11-01 16:37 | disposition home or self-care (01) ==
PROVIDERS: Emergency Provider Emergency Medicine
DX: S46.911A Strain of unspecified muscle, fascia and tendon at shoulder and upper arm level, right arm, initial encounter (principal); Z87.891 Personal history of nicotine dependence; X58.XXXA Exposure to other specified factors, initial encounter
CPT/HCPCS: 73030; 99281; 99282

== ENCOUNTER 2021-08-08 15:53 | Emergency (ER) | payer BC, SELFPAY ==
[2021-08-08 15:54] VITALS: BP 135/83; PULSE 87; RESP 18; TEMP 36.5; O2SAT 98; BMI 27.3
--- NOTE | 2021-08-08 16:40 | EDS_ITS ---
HPI History of Present Illness Chief Complaint: Eye Problem Narrative Narrative: Left eye irritation. Patient noted this when he woke up from a nap. He denies any injury to the eye. Mild erythema without drainage. No visual complaints. Nobody else ill in the house. Patient has no other symptoms. [facility] Medical History Asthma Home Medications erythromycin 1 applic EACH EYE DAILY 5 Days #3.5 g 08/08/21 [Rx Last Taken Unknown] Allergy/AdvReac Type Severity Reaction Status Date / Time No Known Allergies Allergy Verified 08/08/21 15:54 Social History Smoking Status: Former smoker ROS ROS ED Constitutional Constitutional ED: Denies chills or fever(s) Eyes Eyes: Reports other Details: Left eye irritation ; Denies blurry vision or change in vision ENT ENT ED: Denies rhinorrhea or sore throat Cardiovascular Cardiovascular: Denies chest pain or palpitations Respiratory/Chest Respiratory/Chest: Denies cough, dyspnea or sputum Gastrointestinal Gastrointestinal: Denies abdominal pain, nausea or vomiting Genitourinary Genitourinary ED: Denies dysuria or hematuria Musculoskeletal Musculoskeletal: Denies arthralgias or myalgias Integumentary Denies abscess or rash Neurologic Neurologic: Denies headache(s), paresthesias or weakness Psychiatric Psychiatric: Denies anxiety or depression EXAM Physical Exam Const Vital Signs: 08/08/21 15:54 Temperature 97.7 F L Temperature Source Temporal Pulse Rate 87 Respiratory Rate 18 Blood Pressure 135/83 H Blood Pressure Mean 100 Pulse Ox 98 Oxygen Delivery Method Room Air Positive well nourished General Appearance ED: NAD HEENT atraumatic Eyes Eyes Narrative: No pain with extraocular motion. General Eye ED: Yes normal appearance of both eyes and normal light reflex Visual Acuity: acuity normal Visual Field: No peripheral vision loss Eyelid: eyelids normal Conjunctiva: conjunctiva abnormal left Sclera: sclera abnormal Positive for left Details: scleral injection Details: Positive for diffuse Cornea: cornea normal Pupil: PERRL and accommodation reflex normal Resp normal respiratory effort and clear to auscultation bilaterally Cardio regular rate and regular rhythm Neuro oriented x3 and CN's II-XII intact bilaterally Sensorium / Orientation: alert Skin Rashes: no rashes MDM MDM MDM Narrative Medical decision making narrative: Patient has left eye irritation without any trauma. No history of foreign bodies. He is a noncontact wearer. He has no visual complaints. His eyes injected and there is some slight crusting to the eyelids but no drainage. We will start the patient on erythromycin ophthalmic. He is given follow-up with ophthalmology to ensure resolution. Patient stable for discharge at this time. Impression: 1. Conjunctivitis Discharge Plan Triage Chief Complaint: Eye Problem ED Provider: Cb Ford Dx/Rx/DC Orders Instructions: ED Conjunctivitis, Bacterial Prescriptions: New erythromycin 5 mg/gram (0.5 %) ointment 1 applic EACH EYE DAILY 5 Days Qty: 3.5 RF: 0 Primary Care Provider: Care Physician,No Primary Referrals: Garth Bolden MD [STAFF PHYSICIAN] - 3-5 Days Care Physician,No Primary [Primary Care Provider] - Disposition Disposition: Home, Self Care
[2021-08-08] MEDS: Erythromycin Base 1 OPTH.TUBE 1 APPLIC LEFT EYE (16:45)
== END 2021-08-08 16:46 | disposition home or self-care (01) ==
PROVIDERS: Emergency Provider Student in an Organized Health Care Education/Training Program; Visit Provider Student in an Organized Health Care Education/Training Program
DX: H10.9 Unspecified conjunctivitis (principal); Z87.891 Personal history of nicotine dependence
CPT/HCPCS: 99283

== ENCOUNTER 2022-03-01 08:32 | Emergency (ER) | payer BC, SELFPAY ==
[2022-03-01 08:35] VITALS: BP 127/79; PULSE 79; RESP 17; TEMP 36.4; O2SAT 97; BMI 27.3
--- NOTE | 2022-03-01 08:48 | EDS_ITS ---
HPI History of Present Illness Chief Complaint: Ear Problem Narrative Narrative: 46-year-old male presenting with intermittent ringing in his ears. He states he noticed it about a month ago after he had COVID. Patient states he is not having any congestion currently. He does not have any trauma to his head. He had no drainage from his ears. Patient states his ears are not currently ringing. He also states that at times he feels like he can hear things better from the other room that he can up close. He states that when he watches TV sometimes he can hear it as well as he can hear people talk in the other room. He does not any visual complaints. He does not take any chronic medications. Patient does work in an [employer] and wears earplugs most of the day. He states that he does not take these out at work. His ears do not bother him when he is at work. [facility] Medical History Asthma Home Medications NK 03/01/22 [History Last Taken Unknown] Allergy/AdvReac Type Severity Reaction Status Date / Time No Known Allergies Allergy Verified 03/01/22 08:33 Social History Smoking Status: Former smoker ROS ROS ED Review of Systems ROS Unobtainable: Denies due to encephalopathy Constitutional Constitutional ED: Denies chills or fever(s) Eyes Eyes: Denies blurry vision, change in vision or discharge from eye(s) ENT ENT ED: Reports tinnitus; Denies discharge from eye(s), disequillibrium, dizziness, ear discharge, ear pain, epistaxis, loss taste/smell or rhinorrhea Cardiovascular Cardiovascular: Denies chest pain or palpitations Respiratory/Chest Respiratory/Chest: Denies cough or dyspnea Gastrointestinal Gastrointestinal: Denies abdominal pain or constipation Genitourinary Genitourinary ED: Denies dysuria or hematuria Musculoskeletal Musculoskeletal: Denies arthralgias or back pain Integumentary Denies abscess or Abrasions Neurologic Neurologic: Denies headache(s) Psychiatric Psychiatric: Denies anxiety or depression EXAM Physical Exam Const Vital Signs: 03/01/22 08:35 Temperature 97.6 F L Temperature Source Temporal Pulse Rate 79 Respiratory Rate 17 Blood Pressure 127/79 H Blood Pressure Mean 95 Pulse Ox 97 Oxygen Delivery Method Room Air Positive well nourished General Appearance ED: Negative for pallor HEENT Reports moist mucous membranes Negative for trauma External Ear: external ears normal and mastoids normal External Auditory Canal: EAC's normal Tympanic Membrane ED: Yes TM's normal bilaterally Mouth ED: Yes oral and palatal mucosa normal, Yes lips normal and Yes tongue normal Mouth: oral and palatal mucosa normal, lips normal and tongue normal Eyes PERRL and EOMs intact bilaterally General Eye ED: Negative for pale conjunctiva or scleral icterus Resp normal respiratory effort Cardio regular rate and regular rhythm GI normal to inspection, nondistended, normoactive bowel sounds Neuro oriented x3 and CN's II-XII intact bilaterally Sensorium / Orientation: alert Psych mental status grossly normal Skin General Skin Exam: Negative for jaundice or pallor MDM MDM MDM Narrative Medical decision making narrative: Patient presenting with intermittent ringing in his ears. He states he works in [employer]. He does wear earplugs. He describes difficulty hearing things that are closer to him but can hear well when people talk to him from other rooms. I suspect he might have a little bit of hearing loss from his job. His TMs are normal. External auditory canals are normal. Vital signs stable he is afebrile. No bleeding his blood work or imaging here. I will send him to ENT to have his hearing tested. Impression: 1. Tinnitus Lab Data Attestation: I reviewed the patient's lab results. Discharge Plan Triage Chief Complaint: Ear Problem ED Provider: Cb Ford Dx/Rx/DC Orders Instructions: Tinnitus (Ringing in the Ears) Prescriptions: No Action NK Primary Care Provider: Care Physician,No Primary Referrals: Cory Kelly MD [Non-Staff] - 3-5 Days Care Physician,No Primary [Primary Care Provider] - Disposition Disposition: Home, Self Care
--- NOTE | 2022-03-01 09:22 | ED.RN ---
pt left room prior to being evaluated by the ER physician or ER nurse. Pt assessed by triage nurse only. pt walked out of department without distress noted.
== END 2022-03-01 10:00 | disposition home or self-care (01) ==
LOC: ED 08:57
PROVIDERS: Emergency Provider Student in an Organized Health Care Education/Training Program; Visit Provider Student in an Organized Health Care Education/Training Program
DX: H93.13 Tinnitus, bilateral (principal); Z86.16 Personal history of COVID-19; Z87.891 Personal history of nicotine dependence
CPT/HCPCS: 99281

== ENCOUNTER 2022-11-09 15:09 | Emergency (ER) | payer BC, SELFPAY ==
[2022-11-09 15:09] VITALS: BP 134/78; PULSE 66; RESP 14; O2SAT 99
[2022-11-09 15:10] VITALS: BP 155/95; PULSE 64; RESP 16; TEMP 36.4; O2SAT 100; BMI 27.8
--- NOTE | 2022-11-09 15:19 | EKG12_ITS ---
Test Reason : N/V Blood Pressure : / mmHG Vent. Rate : 063 BPM Atrial Rate : 063 BPM P-R Int : 166 ms QRS Dur : 078 ms QT Int : 390 ms P-R-T Axes : 043 004 002 degrees QTc Int : 399 ms Normal sinus rhythm Nonspecific ST and T wave abnormality Abnormal ECG Confirmed by KAVYA RIVAS, LAITA ([id number]), rewrite editor BABS BAEZA ([id number]) on 11/11/2022 12:39:21 PM Referred By: Confirmed By:LATIA HOFF MD
--- NOTE | 2022-11-09 15:21 | EDS_ITS ---
HPI History of Present Illness Chief Complaint: Nausea/Vomiting Informant: patient Narrative Narrative: Patient presents with nausea vomiting increased stools and abdominal pain. Patient states that he felt fine on . He ate lunch which was sloppy [employer]. Shortly after lunch she started to get some epigastric pain and slightly toward the right upper quadrant. He had some nausea but no vomiting. He does feel bloated. He took the day off Friday but he was eating normally on Friday ate chicken and other foods and liquids and had no problems. This morning he woke up he had a little bit of nausea. He did eat some foods such as watermelon. He then vomited and moved his bowels about the same time. No blood was seen. He vomited 1 more time as he arrived here. Again no blood. He does have a history of GERD but is on no meds. No other medical problems medications or allergies. He has had no prior abdominal surgeries or history of biliary disease. He has never had pancreatitis. He drinks on occasion but not regularly. He had a couple beers the day before this started. He does not have back pain. [facility] Medical History Asthma Home Medications dicyclomine 10 mg capsule 20 mg (2 x 10 mg) PO TIDAC #20 CAPSULES 11/09/22 [Rx Last Taken Unknown] ondansetron 4 mg disintegrating tablet 4 mg PO Q8H PRN PRN Nausea #10 tabs 11/09/22 [Rx Last Taken Unknown] promethazine 25 mg tablet 25 mg PO Q6H PRN PRN Nausea #10 TABLETS 11/09/22 [Rx Last Taken Unknown] Allergy/AdvReac Type Severity Reaction Status Date / Time No Known Allergies Allergy Verified 11/09/22 15:11 Social History Smoking Status: Former smoker ROS ROS ED ROS Narrative A complete review of systems was performed and is negative except as documented in the history of present illness. Some specific details below. Constitutional: No recent fevers or chills. No malaise. EYE: No v color change. ENT: No difficulty swallowing. No swelling. No pain. He does have some mild GERD. CV: No chest pain or palpitations. Pain does not radiate into the chest. Respiratory: No dyspnea. No hemoptysis. No difficulty taking breaths. No coughing GI: Please see history of present illness. : No frequency dysuria or hematuria. No difficulty starting or stopping stream or change in color. Musculoskeletal: No recent trauma. No pains. Skin: No rash. Nondiaphoretic. Neuro: No weakness or numbness. Endocrine: No polyuria or polydipsia. EXAM Physical Exam Narrative Exam Narrative: CONSTITUTIONAL: Patient is nontoxic in appearance. The patient looks comfortable. HEENT: No notable trauma. Mucous membranes still moist. No sinus tenderness. No indication of pain with swallowing. EYES: No conjunctival injection. No icterus. CARDIOVASCULAR: Regular rate. Regular rhythm. No notable murmur. No JVD. RESPIRATORY: No respiratory distress. Breathing is unlabored. No wheezes. No rhonchi. No rales. No pain with a deep breath. GASTROINTESTINAL: Not distended. Bowel sounds are normal to may be slightly increased. He does have some mild tenderness in the epigastric and just right of center. Negative Kahn sign though. No rebound or guarding. No mass felt. I feel no hernia. There is no tenderness whatsoever below the umbilicus. GENITOURINARY: No tenderness over the bladder. No CVA tenderness on either side. MUSCULOSKELETAL: Atraumatic. No peripheral edema. NEUROLOGICAL: Patient is alert and appropriate. No focal deficit noted is observed. SKIN: No noted rashes. No diaphoresis. No pallor. PSYCHIATRIC: Patient is calm. Mood is appropriate. Const Vital Signs: 11/09/22 15:10 11/09/22 15:09 11/09/22 17:09 Temperature 97.5 F L Temperature Source Temporal Pulse Rate 64 66 89 Respiratory Rate 16 14 14 Blood Pressure 155/95 H 134/78 H Blood Pressure Mean 115 96 Pulse Ox 100 99 99 Oxygen Delivery Method Room Air Room Air Room Air 11/09/22 19:09 Temperature Temperature Source Pulse Rate 66 Respiratory Rate 14 Blood Pressure 126/78 H Blood Pressure Mean 94 Pulse Ox 99 Oxygen Delivery Method Room Air [facility] [place] Medical decision making narrative: Patient CBC is normal. Patient's electrolytes are normal. Patient's liver function test are normal. Patient's lipase is mildly elevated at 141. Patient's urinalysis is negative. Patient's toxicology screen is positive for cannabinoids. My independent interpretation of the CT of the abdomen shows no perforation free air or mass obstruction or indication of pancreatitis. Final reading was enlarged mildly steatotic liver and questionable urinary cystitis. Because of this reading we did do the urinalysis above as it was normal. Patient's been given meds for pain and nausea here. He intermittently gets feeling very good and then feels bad again. He initially denied marijuana but now admits it. He does smoke couple times a day. He now states that when he gets this as he has had this before now it gets better when he takes a hot bath or shower. I explained that this is likely cannabis hyperemesis syndrome. I explained treatment including using the hot pepper rub on the abdomen. He can buy this off of [employer]. He wants to go home now Lab Data Labs: Laboratory Results - last 24 hr 11/09/22 11/09/22 15:30 18:42 WBC 7.7 RBC 5.37 Hgb 15.8 Hct 47.8 MCV 89.0 MCH 29.4 MCHC 33.1 RDW Std Deviation 45.0 H RDW Coeff of Demarco 13.9 Plt Count 374 MPV 9.6 Immature Gran % (Auto) 0.400 Neut % (Auto) 48.5 Lymph % (Auto) 43.2 H Towns % (Auto) 6.0 Eos % (Auto) 1.2 Baso % (Auto) 0.7 Absolute Neuts (auto) 3.7 Absolute Lymphs (auto) 3.32 Nucleated RBC % 0 Sodium 140 Potassium 3.9 Chloride 107 Carbon Dioxide 28.0 Anion Gap 5 BUN 9 Creatinine 1.13 Estim Creat Clear Calc 82.55 Est GFR (MDRD) Af Amer 90 Est GFR (MDRD) Non-Af 74 BUN/Creatinine Ratio 8.0 L Glucose 117 H Calcium 9.2 Total Bilirubin 0.80 AST 26 ALT 58 Alkaline Phosphatase 88 Total Protein 7.5 Albumin 4.1 Globulin 3.4 Albumin/Globulin Ratio 1.2 Lipase 141 H Urine Color Yellow Urine Clarity Clear Urine pH 9.0 Ur Specific [place] 1.015 Urine Protein 15 H Urine Glucose (UA) Normal Urine Ketones 5 H Urine Occult Blood Negative Urine Nitrite Negative Urine Bilirubin Negative Urine Urobilinogen Normal Ur Leukocyte Esterase 25 H Urine RBC 0 SEEN Urine WBC 0 SEEN Ur Squamous Epith Cells 0 SEEN Urine Bacteria 0 SEEN Urine Mucus 0 SEEN Urine Opiates Screen NEGATIVE Urine Methadone Screen NEGATIVE Ur Barbiturates Screen NEGATIVE Ur Phencyclidine Scrn NEGATIVE Ur Amphetamines Screen NEGATIVE MDMA (Ecstasy) Screen NEGATIVE U Benzodiazepines Scrn NEGATIVE Urine Cocaine Screen NEGATIVE U Cannabinoids Screen POSITIVE H Ur Drug Screen Comment Radiography Diagnostic Testing: Clinical Impression(s) from Imaging Studies Abdomen/Pelvis CT 11/09/22 16:00 IMPRESSION: 1. Enlarged mildly steatotic liver. 2. Normal appendix. 3. Question urinary cystitis. Electronically Signed: Khanh Levin MD at 16:57 EDT , EKG Initial EKG: Comments: My independent interpretation the patient's EKG done for upper abdominal pain in a 46-year-old shows a normal sinus rhythm with overall rate of 63. No ventricular ectopy. He has some nonspecific ST and T wave change but no convincing evidence of ischemia or infarct. [place] interval, QRS duration and QTc are normal. Discharge Plan Triage Chief Complaint: Nausea/Vomiting ED Provider: Hill García Dx/Rx/DC Orders Clinical Impression: Nausea vomiting and diarrhea, Abdominal pain, Cannabis hyperemesis syndrome concurrent with and due to cannabis abuse Instructions: Cannabinoid Hyperemesis Syndrome Prescriptions: New promethazine [promethazine] 25 mg tablet 25 mg PO Q6H PRN PRN (Reason: Nausea) Qty: 10 0RF ondansetron [ondansetron] 4 mg tablet,disintegrating 4 mg PO Q8H PRN PRN (Reason: Nausea) Qty: 10 0RF dicyclomine 10 mg capsule 20 mg PO TIDAC Qty: 20 0RF Primary Care Provider: Care Physician,No Primary Referrals: Davin Christensen MD [Med Staff - [employer]] - 3-5 Days if not improving Care Physician,No Primary [Primary Care Provider] - Disposition Disposition: Home, Self Care
--- NOTE | 2022-11-09 15:23 | NURSING ---
NO OLD EKGS
[2022-11-09] MEDS: 0.9% Normal Saline 1,000 ML 1000 ML IV (15:29)
[2022-11-09] MEDS: Ondansetron 4 MG/2 ML Vial IV (15:29)
[2022-11-09] MEDS: Dicyclomine 20 MG/2 ML Vial IM (15:29)
[2022-11-09 15:38] LABS: Absolute Lymphocyte Count 3.32 X10^3/uL (0.83-4.51); Absolute Neutrophil Count 3.7 X10^3/uL (2.0-7.7); Basophil# 0.05 X10^3/uL; Basophil% 0.7 % (0-1); Eosinophil# 0.09 X10^3/uL; Eosinophils% 1.2 % (0-5); Hematocrit 47.8 % (40-54); Hemoglobin 15.8 g/dL (13.0-16.5); Lymphocyte # 3.32 X10^3/ul (0.83-4.51); Lymphocyte % 43.2 % (19-41); Mean Corp Hgb Conc 33.1 g/dL (32-36); Mean Corpuscular Hgb 29.4 pg (27.0-32.0); Mean Platelet Vol. 9.6 fl (6.2-12.0); Monocyte# 0.46 X10^3/uL; NRBC Flagged by Analyzer 0 % (0-5); Neutrophil # 3.73 X10^3/uL (2.7-7.7); Neutrophil % 48.5 % (47-70); Platelet Count 374 K/mm3 (150-450); RBC Distribution Width CV 13.9 % (11.6-14.6); Red Blood Count 5.37 M/mm3 (4.6-6.2); White Blood Count 7.7 K/mm3 (4.4-11.0)
--- NOTE | 2022-11-09 16:00 | CT_ITS ---
EXAM: CT ABDOMEN AND PELVIS WITH INTRAVENOUS CONTRAST CLINICAL INDICATION: pain TECHNIQUE: Helically acquired images were obtained of the abdomen and pelvis with intravenous contrast. This CT exam was performed using one or more of the following dose reduction techniques: automated exposure control, adjustment of the mA and/or kV according to patient size, and/or use of iterative reconstruction technique. CONTRAST: IV 100mL Isovue-300 COMPARISON: No relevant prior studies available. FINDINGS: LOWER THORAX: Normal. Lung bases are clear. No cardiomegaly. No pericardial effusion. ABDOMEN: LIVER: Diminished liver density consistent with mild steatosis. Liver is mildly enlarged. PANCREAS: Normal. No focal cystic or solid mass. SPLEEN: Normal. Normal size without focal cystic or solid mass. ADRENALS: Normal. No nodules. KIDNEYS AND URETERS: Normal. Normal renal size and position. No hydronephrosis. STOMACH AND BOWEL: Normal. No bowel distention. No focal inflammatory change. PELVIS: APPENDIX: Appendix is visualized and normal in appearance. BLADDER: Questionable wall thickening of the urinary bladder raising possibility of cystitis. REPRODUCTIVE: Unremarkable as visualized. No mass. ABDOMEN and PELVIS: INTRAPERITONEAL SPACE: Normal. No ascites or other fluid collection. No free air. BONES/JOINTS: No suspicious lytic or blastic abnormality. SOFT TISSUES: Normal. No discrete abdominal or pelvic wall hernia. VASCULATURE: Normal. Abdominal aorta is non-dilated. LYMPH NODES: Normal. No enlarged lymph nodes. CT/Abdomen/Pelvis W IV Cont ONLY IMPRESSION: 1. Enlarged mildly steatotic liver. 2. Normal appendix. 3. Question urinary cystitis. Electronically Signed: Khanh Levin MD at 16:57 EDT ,
[2022-11-09 16:07] LABS: ALB/GLOB Ratio 1.2 RATIO (0.9-2.4); AST(SGOT) 26 U/L (15-37); Alanine Aminotransfer ALT/SGPT 58 U/L (16-61); Albumin, Serum 4.1 g/dL (3.2-5.0); Alkaline Phosphatase 88 U/L (45-117); Anion Gap 5 (5-15); BUN 9 mg/dL (7-18); Calcium,Total 9.2 mg/dL (8.5-10.1); Chloride 107 mmol/L (98-107); Creatinine, Serum 1.13 mg/dL (0.70-1.30); EST Glomerular Filtration Rate 74 mL/min (>60); Est Glom Filt Rate - Afr Amer 90 mL/min (>60); Estimated Creatinine Clearance 82.55 ml/min; Globulin 3.4 g/dL (2.2-4.2); Glucose 117 mg/dL (74-106); Lipase 141 U/L (13-75); Potassium 3.9 mmol/L (3.5-5.1); Protein, Total 7.5 g/dL (6.4-8.2); Sodium Level 140 mmol/L (136-145)
[2022-11-09] MEDS: proMETHazine 25 MG/ML Syringe 12.5 MG IM (16:12)
[2022-11-09 17:09] VITALS: PULSE 89; RESP 14; O2SAT 99
--- NOTE | 2022-11-09 18:22 | ED.RN ---
pt. keeps coming out of room states this is fucking ridiculous, explained to pt. that the dr. is tied up in another room. pt. does not understand. explained to pt. he can leave if he wants to. pt. sits back down in the chair. will continue to monitor
[2022-11-09 18:47] LABS: Bacteria 0 SEEN /hpf (None Seen); Mucous, Urine 0 SEEN /hpf (<or=2+); Red Blood Cells-Urine 0 SEEN /hpf (0-5); Squamous Epithelial Cells - UA 0 SEEN /hpf (0-5); White Blood Cells 0 SEEN /hpf (0-5)
[2022-11-09 19:01] LABS: Color, Urine Yellow (Yellow); Glucose, Dipstick Normal (Normal); Ketone-Dipstick 5 mg/dl (Negative); Leukocyte Esterase-Dipstick 25 /ul (Negative); Nitrite-Dipstick Negative (Negative); Occult Blood-Urine Negative /ul (Negative); Protein-Dipstick 15 mg/dl (Negative); Specific Gravity, Urine 1.015 (1.002-1.030); Urine Bilirubin Dipstick Negative (Negative); Urine Clarity Clear (Clear); Urine Urobilinogen Normal (Normal)
[2022-11-09 19:09] VITALS: BP 126/78; PULSE 66; RESP 14; O2SAT 99
[2022-11-09] MEDS: Morphine 4 MG/ML Syringe IV (19:28)
[2022-11-09 19:56] LABS: Amphetamine Urine VISTA NEGATIVE (<1000 ng/mL); Barbiturate Urine VISTA NEGATIVE (< 200 ng/mL); Benzodiazepine Urine VISTA NEGATIVE (< 200 ng/mL); Cocaine Urine VISTA NEGATIVE (< 300 ng/mL); Ecstacy Urine VISTA NEGATIVE (< 500 ng/mL); Methadone Urine VISTA NEGATIVE (< 300 ng/mL); PCP Urine VISTA NEGATIVE (< 25 ng/mL); THC Urine VISTA POSITIVE (< 50 ng/mL); Vista UDS pH Range 7
== END 2022-11-09 20:46 | disposition home or self-care (01) ==
PROVIDERS: Emergency Provider Emergency Medicine; Visit Provider Emergency Medicine
DX: R11.2 Nausea with vomiting, unspecified (principal); F12.188 Cannabis abuse with other cannabis-induced disorder; R19.7 Diarrhea, unspecified; R10.13 Epigastric pain; Z87.891 Personal history of nicotine dependence
CPT/HCPCS: 74177; 80053; 80307; 81001; 83690; 85025; 93005; 96365; 96366; 96372; 96375; 99283; Q9967; J2405; J3490

== ENCOUNTER 2024-04-23 13:17 | Emergency (ER) | payer BC, SELFPAY ==
[2024-04-23 13:18] VITALS: BP 151/92; PULSE 71; RESP 15; TEMP 36.1; O2SAT 99; BMI 26.6
--- NOTE | 2024-04-23 13:29 | EX.ED.DYSGE1 ---
HPI <CHARLI Malik - Last Filed: 04/23/24 15:58> History of Present Illness Chief Complaint: Abd Pain Narrative Narrative: Patient is a 48-year-old male with history of asthma, daily drinker of alcohol, patient states it varies to what he drinks. Pay states over the last week, his pain to the right side of his back, upper abdomen, and he is concerned. Patient is of the last week, has had 6 pound weight loss, nausea and vomiting. Pay states he has no appetite, has not moved his bowels. Patient denies any specific fever or chills, denies any sick contacts. Pay states he did vomit 3 times this morning and believes he did emergency department evaluation. PFSH <CHARLI Malik - Last Filed: 04/23/24 15:58> [facility] Medical History Asthma Home Medications ?Medication ?Instructions ?Recorded ?Last Taken ?Type dicyclomine 10 mg capsule 20 mg (2 x 10 mg) PO TIDAC #20 11/09/22 Unknown Rx CAPSULES ondansetron 4 mg disintegrating 4 mg PO Q8H PRN PRN Nausea #10 tabs 11/09/22 Unknown Rx tablet promethazine 25 mg tablet 25 mg PO Q6H PRN PRN Nausea #10 11/09/22 Unknown Rx TABLETS dicyclomine 20 mg tablet 20 mg PO TID PRN abdominal pain 04/23/24 Unknown Rx #20 tabs omeprazole 40 mg capsule,delayed 40 mg PO DAILY #30 caps 04/23/24 Unknown Rx release ondansetron 4 mg disintegrating 4 mg PO Q8H PRN PRN Nausea #10 tabs 04/23/24 Unknown Rx tablet sucralfate 1 gram tablet (Carafate) 1 g PO TID 10 days #30 tabs 04/23/24 Unknown Rx Allergy/AdvReac Type Severity Reaction Status Date / Time No Known Allergies Allergy Verified 04/23/24 13:18 Social History Smoking Status: Former smoker ROS <CHARLI Malik - Last Filed: 04/23/24 15:58> ROS ED ROS Narrative Constitutional: Negative for fever, chills, weight loss, weakness Eyes: Negative for vision loss, vision change, double vision ENT: Negative for any sore throat, ear pain, congestion Cardiovascular: Negative for any chest pain, tightness, palpitations Respiratory: Negative for any cough, sputum production, hemoptysis, dyspnea, dyspnea on exertion, orthopnea Gastrointestinal: Negative for any diarrhea, blood in stool, blood in vomit. Positive for abdominal pain, nausea and vomiting, constipation : Negative for any urinary frequency, dysuria, retention, blood in urine Muscle skeletal: Negative for any neck pain, back pain Neurological: Negative for any headache, syncope, dizziness Skin: Negative for any rashes, itching, abrasions, lacerations Psychiatric: Negative for any depression, anxiety, stress, suicidal ideation, homicidal ideation Hematologic: Negative for any excessive bruising, easy bleeding EXAM <CHARLI Malik - Last Filed: 04/23/24 15:58> Physical Exam Narrative Exam Narrative: Vital signs reviewed. Patient on my initial evaluation seem to be anxious, patient states that he is concerned because of his drinking history. Patient is tearful HEET: Head normocephalic atraumatic, TMs clear bilaterally. Posterior pharynx is clear, moist mucous membranes. Nares clear bilaterally. Neck: Supple with no lymphadenopathy or tenderness. No signs of meningismus. Cardiac: Regular rate and rhythm no murmurs gallops or rubs, equal peripheral pulses bilaterally. Respiratory: Lungs clear to auscultation bilaterally. No chest tenderness. Abdomen: Soft, nontender, nondistended. No abdominal bruit or pulsatile masses. No hepatosplenomegaly. Negative for any peritoneal signs Extremities: No peripheral edema, no signs of gross trauma or deformity. Active full range of motion of all extremities. Neuro: Cranial nerves II through XII intact, no focal neurological deficits. Skin: Clean dry and intact with no rash, purpura, petechiae, vesicles or pustules. Backs/flank: No CVA tenderness, no midline spinal tenderness, no deformity. Psych: Normal mood and affect. No SI, HI or acute psychosis. Const Vital Signs: 04/23/24 13:18 04/23/24 15:19 Temperature 97 F L Temperature Source Temporal Pulse Rate 71 63 Respiratory Rate 15 15 Blood Pressure 151/92 H 130/97 H Blood Pressure Mean 111 108 Pulse Ox 99 95 Oxygen Delivery Method Room Air Room Air Positive well nourished and well developed General Appearance ED: well developed <Dr. Gamal Flanagan MD - Last Filed: 04/23/24 15:52> Physical Exam Const Vital Signs: 04/23/24 13:18 04/23/24 15:19 Temperature 97 F L Temperature Source Temporal Pulse Rate 71 63 Respiratory Rate 15 15 Blood Pressure 151/92 H 130/97 H Blood Pressure Mean 111 108 Pulse Ox 99 95 Oxygen Delivery Method Room Air Room Air MDM <CHARLI Malik - Last Filed: 04/23/24 15:58> MDM Lab Data Labs: Laboratory Results - last 24 hr 04/23/24 04/23/24 04/23/24 13:31 13:46 14:51 WBC 7.2 RBC 5.89 Hgb 17.5 H Hct 49.6 MCV 84.2 MCH 29.7 MCHC 35.3 RDW Std Deviation 41.9 RDW Coeff of Demarco 13.4 Plt Count 350 MPV 9.4 Immature Gran % (Auto) 0.400 Neut % (Auto) 55.0 Lymph % (Auto) 35.9 [place] % (Auto) 7.9 Eos % (Auto) 0.1 Baso % (Auto) 0.7 Absolute Neuts (auto) 4.0 Absolute Lymphs (auto) 2.59 Nucleated RBC % 0 PT 14.2 INR 1.1 Sodium 135 L Potassium 3.5 Chloride 102 Carbon Dioxide 24.0 Anion Gap 9 BUN 13 Creatinine 1.08 Estim Creat Clear Calc 84.56 Est GFR (MDRD) Af Amer 94 Est GFR (MDRD) Non-Af 78 BUN/Creatinine Ratio 12.0 Glucose 136 H Calcium 9.7 Total Bilirubin 1.90 H Direct Bilirubin 0.39 H AST 31 ALT 44 Alkaline Phosphatase 96 Total Protein 8.2 Albumin 4.6 Globulin 3.6 Lipase 33 Urine Color Yellow Urine Clarity Clear Urine pH 6.0 Ur Specific [place] 1.025 Urine Protein 30 H Urine Glucose (UA) Normal Urine Ketones Negative Urine Occult Blood Negative Urine Nitrite Negative Urine Bilirubin 1 H Urine Urobilinogen 4 H Ur Leukocyte Esterase 25 H Urine RBC 0 SEEN Urine WBC 0-5 SEEN Ur Squamous Epith Cells 0 SEEN Urine Bacteria 1+ Urine Mucus 2+ Ethyl Alcohol < 3.0 Treatment and Re-Evaluation :: Differential diagnosis includes however is not limited to: Acute pancreatitis, acute cholecystitis, cholangitis, GERD, gastritis, duodenal ulcer, bowel obstruction Patient on my initial evaluation appears generally well, patient was anxious, he was tearful when speaking about his symptoms. Patient states he is concerned because he has been drinking heavily for multiple years. Patient's abdominal exam was nonspecific, no specific pain or localization. No peritoneal signs. Patient will receive the basic laboratory values including CBC BMP liver panel lipase, PT/INR. Patient given IV fluids, IV Toradol, IV Zofran. Patient will need to be reevaluated. On reevaluation, the patient did have some improvement. Patient's CBC was unremarkable, CMP was unremarkable, total bilirubin slightly elevated 1.9 with a direct bilirubin 0.39, he does have history of elevated bilirubin. Lipase was negative, alcohol was negative, PT/INR within normal limits. IV fluids, Zofran, Toradol did help. Patient was redosed with GI cocktail as well as IV Pepcid. On reevaluation, the patient was feeling better. I think this is more of a gastritis type picture. Patient will again try to decrease his alcohol use. Patient will be started on omeprazole as well as supplemented with Carafate 3 times a day. He will be given referral to Dr. Young for an upper GI scope. He was given strict return precautions to return here for worsening uncontrolled pain, vomiting blood, fever chills nausea or vomiting. All questions answered, stable for discharge. <Dr. Gamal Flanagan MD - Last Filed: 04/23/24 15:52> [facility] Narrative Medical decision making narrative: I have personally performed a face to face assessment of the patient and have reviewed the FRACISCO Note. I performed a substantive portion of the visit including all aspects of the following. My frederick findings include: History Upper abdominal pain for about the past week, mostly left upper quadrant. Not worse with meals. Intermittent heavy alcohol use but has not drank for the past 5 days. Was not necessarily worse in the couple days prior to that when he was drinking. Normal bowel movements no melena or blood. Some vomiting, no blood or coffee-ground emesis. Exam is soft nontender abdomen. No palpable mass.? Possible scleral icterus. Black skin makes it difficult to determine if jaundice present or not. Alert and oriented x 3. Medical Decison Making labs with hepatic panel, INR, all noted. His bilirubin is a little elevated but he has been higher in the past. INR is normal. Counts and kidney function and electrolytes otherwise normal. Bedside ultrasound performed by myself shows no biliary stones, the gallbladder wall is 0.17 cm within normal limits. No tenderness in this area negative sonographic Kahn. Do not think advanced imaging necessary. Will treat him for intraluminal disease/etiologies and have him follow-up as an outpatient. Counseled to avoid alcohol. Other additions or changes: [None] Lab Data Labs: Laboratory Results - last 24 hr 04/23/24 04/23/24 04/23/24 13:31 13:46 14:51 WBC 7.2 RBC 5.89 Hgb 17.5 H Hct 49.6 MCV 84.2 MCH 29.7 MCHC 35.3 RDW Std Deviation 41.9 RDW Coeff of Demarco 13.4 Plt Count 350 MPV 9.4 Immature Gran % (Auto) 0.400 Neut % (Auto) 55.0 Lymph % (Auto) 35.9 [place] % (Auto) 7.9 Eos % (Auto) 0.1 Baso % (Auto) 0.7 Absolute Neuts (auto) 4.0 Absolute Lymphs (auto) 2.59 Nucleated RBC % 0 PT 14.2 INR 1.1 Sodium 135 L Potassium 3.5 Chloride 102 Carbon Dioxide 24.0 Anion Gap 9 BUN 13 Creatinine 1.08 Estim Creat Clear Calc 84.56 Est GFR (MDRD) Af Amer 94 Est GFR (MDRD) Non-Af 78 BUN/Creatinine Ratio 12.0 Glucose 136 H Calcium 9.7 Total Bilirubin 1.90 H Direct Bilirubin 0.39 H AST 31 ALT 44 Alkaline Phosphatase 96 Total Protein 8.2 Albumin 4.6 Globulin 3.6 Lipase 33 Urine Color Yellow Urine Clarity Clear Urine pH 6.0 Ur Specific [place] 1.025 Urine Protein 30 H Urine Glucose (UA) Normal Urine Ketones Negative Urine Occult Blood Negative Urine Nitrite Negative Urine Bilirubin 1 H Urine Urobilinogen 4 H Ur Leukocyte Esterase 25 H Urine RBC 0 SEEN Urine WBC 0-5 SEEN Ur Squamous Epith Cells 0 SEEN Urine Bacteria 1+ Urine Mucus 2+ Ethyl Alcohol < 3.0 Discharge Plan Triage Chief Complaint: Abd Pain ED Midlevel Provider: Alberto Mariee ED Provider: Gamal Flanagan Dx/Rx/DC Orders Clinical Impression: Acute upper abdominal pain Instructions: Abdominal Pain, ED Gastritis (Adult) Prescriptions: New ondansetron 4 mg tablet,disintegrating 4 mg PO Q8H PRN PRN (Reason: Nausea) Qty: 10 0RF dicyclomine 20 mg tablet 20 mg PO TID PRN (Reason: abdominal pain) Qty: 20 0RF sucralfate [Carafate] 1 gram tablet 1 g PO TID 10 Days Qty: 30 0RF omeprazole 40 mg capsule,delayed release(DR/EC) 40 mg PO DAILY Qty: 30 1RF No Action promethazine [promethazine] 25 mg tablet 25 mg PO Q6H PRN PRN (Reason: Nausea) Qty: 10 0RF ondansetron [ondansetron] 4 mg tablet,disintegrating 4 mg PO Q8H PRN PRN (Reason: Nausea) Qty: 10 0RF dicyclomine 10 mg capsule 20 mg PO TIDAC Qty: 20 0RF Primary Care Provider: Care Physician,No Primary Referrals: Friend,Erik, DO [Med Staff - Active Staff] - Care Physician,No Primary [Primary Care Provider] - Activity Restrictions/Additional Instructions: You will use the dicyclomine as needed for upper abdominal pain, cramping. Use the Carafate before meals, the omeprazole every morning. Use the Zofran as needed for nausea and vomiting. Follow-up with GI. Print Language: Malian Disposition Disposition: Home, Self Care
[2024-04-23] MEDS: Ondansetron 4 MG/2 ML Vial IV (13:35)
[2024-04-23] MEDS: Ketorolac 15 MG/ML Vial IV (13:35)
[2024-04-23] MEDS: 0.9% Normal Saline (1000mL) 1,000 ML 999 ML IV (13:36)
[2024-04-23 13:44] LABS: Absolute Lymphocyte Count 2.59 X10^3/uL (0.83-4.51); Basophil# 0.05 X10^3/uL; Basophil% 0.7 % (0-1); Eosinophil# 0.01 X10^3/uL; Eosinophils% 0.1 % (0-5); Hematocrit 49.6 % (40-54); Hemoglobin 17.5 g/dL (13.0-16.5); Lymphocyte # 2.59 X10^3/ul (0.83-4.51); Lymphocyte % 35.9 % (19-41); Mean Corp Hgb Conc 35.3 g/dL (32-36); Mean Corpuscular Hgb 29.7 pg (27.0-32.0); Mean Corpuscular Volume 84.2 fL (80-94); Mean Platelet Vol. 9.4 fl (6.2-12.0); Monocyte# 0.57 X10^3/uL; Monocyte% 7.9 % (0-10); NRBC Flagged by Analyzer 0 % (0-5); Neutrophil # 3.97 X10^3/uL (2.7-7.7); Platelet Count 350 K/mm3 (150-450); RBC Distribution Width CV 13.4 % (11.6-14.6); RBC Distribution Width SD 41.9 fl (35.1-43.9); Red Blood Count 5.89 M/mm3 (4.6-6.2); White Blood Count 7.2 K/mm3 (4.4-11.0)
[2024-04-23 13:58] LABS: AST(SGOT) 31 U/L (15-37); Alanine Aminotransfer ALT/SGPT 44 U/L (16-61); Albumin, Serum 4.6 g/dL (3.2-5.0); Alkaline Phosphatase 96 U/L (45-117); Anion Gap 9 (5-15); BUN 13 mg/dL (7-18); Bilirubin, Direct 0.39 mg/dL (0.00-0.30); Calcium,Total 9.7 mg/dL (8.5-10.1); Chloride 102 mmol/L (98-107); Creatinine, Serum 1.08 mg/dL (0.70-1.30); EST Glomerular Filtration Rate 78 mL/min (>60); Est Glom Filt Rate - Afr Amer 94 mL/min (>60); Estimated Creatinine Clearance 84.56 ml/min; Globulin 3.6 g/dL (2.2-4.2); Glucose 136 mg/dL (74-106); Lipase 33 U/L (13-75); Potassium 3.5 mmol/L (3.5-5.1); Protein, Total 8.2 g/dL (6.4-8.2); Sodium Level 135 mmol/L (136-145)
[2024-04-23 14:02] LABS: International Normalized Ratio 1.1; Prothrombin Time (Protime)PT. 14.2 SECONDS (11.7-14.9)
[2024-04-23 14:03] LABS: Alcohol, Blood (Medical)-Serum < 3.0 mg/dL
[2024-04-23 14:55] LABS: Red Blood Cells-Urine 0 SEEN /hpf (0-5); Squamous Epithelial Cells - UA 0 SEEN /hpf (0-5)
[2024-04-23 14:58] LABS: Color, Urine Yellow (Yellow); Glucose, Dipstick Normal (Normal); Ketone-Dipstick Negative (Negative); Leukocyte Esterase-Dipstick 25 /ul (Negative); Nitrite-Dipstick Negative (Negative); Occult Blood-Urine Negative /ul (Negative); Protein-Dipstick 30 mg/dl (Negative); Specific Gravity, Urine 1.025 (1.002-1.030); Urine Clarity Clear (Clear); Urine Urobilinogen 4 mg/dl (Normal)
[2024-04-23] MEDS: Lidocaine 2% Viscous15 ML UDC 15 ML PO (15:00)
[2024-04-23] MEDS: Mag Hydrox/Al Hydrox/Simeth 30 ML UDC PO (15:00)
[2024-04-23 15:01] LABS: Urine Bilirubin Dipstick 1 mg/dL (Negative)
[2024-04-23 15:04] LABS: Mucous, Urine 2+ /hpf (<or=2+)
[2024-04-23 15:05] LABS: Bacteria 1+ /hpf (None Seen); White Blood Cells 0-5 SEEN /hpf (0-5)
[2024-04-23] MEDS: Famotidine 200 MG/20 ML MDV 20 MG in 0.9% Normal Saline (Pres. free 8 ML 300 MG IV (15:13)
[2024-04-23 15:19] VITALS: BP 130/97; PULSE 63; RESP 15; O2SAT 95
[2024-04-23 16:06] VITALS: BP 154/86; PULSE 68; RESP 18; TEMP 36.4; O2SAT 97
== END 2024-04-23 16:07 | disposition home or self-care (01) ==
PROVIDERS: Nurse Practitioner; Emergency Provider Emergency Medicine; Visit Provider Emergency Medicine
DX: R10.12 Left upper quadrant pain (principal); F10.90 Alcohol use, unspecified, uncomplicated; Z87.891 Personal history of nicotine dependence
CPT/HCPCS: 80048; 80076; 81001; 82077; 83690; 85025; 85610; 96361; 96374; 96375; 99283; A4216; J2405

== ENCOUNTER 2024-06-22 15:02 | Emergency (ER) | payer BC, SELFPAY ==
[2024-06-22 15:03] VITALS: BP 146/97; PULSE 89; RESP 16; TEMP 36.9; O2SAT 99; BMI 25.7
[2024-06-22 17:25] LABS: Absolute Lymphocyte Count 4.17 X10^3/uL (0.83-4.51); Absolute Neutrophil Count 2.7 X10^3/uL (2.0-7.7); Basophil# 0.05 X10^3/uL; Basophil% 0.6 % (0-1); Eosinophil# 0.09 X10^3/uL; Eosinophils% 1.2 % (0-5); Hematocrit 48.6 % (40-54); Hemoglobin 16.6 g/dL (13.0-16.5); Lymphocyte # 4.17 X10^3/ul (0.83-4.51); Lymphocyte % 54.1 % (19-41); Mean Corp Hgb Conc 34.2 g/dL (32-36); Mean Corpuscular Volume 84.8 fL (80-94); Mean Platelet Vol. 9.8 fl (6.2-12.0); Monocyte# 0.68 X10^3/uL; Monocyte% 8.8 % (0-10); NRBC Flagged by Analyzer 0 % (0-5); Platelet Count 398 K/mm3 (150-450); RBC Distribution Width CV 14.1 % (11.6-14.6); RBC Distribution Width SD 43.5 fl (35.1-43.9); Red Blood Count 5.73 M/mm3 (4.6-6.2); White Blood Count 7.7 K/mm3 (4.4-11.0)
[2024-06-22 17:40] LABS: ALB/GLOB Ratio 1.3 RATIO (0.9-2.4); AST(SGOT) 12 U/L (15-37); Alanine Aminotransfer ALT/SGPT 26 U/L (16-61); Albumin, Serum 4.5 g/dL (3.2-5.0); Alkaline Phosphatase 88 U/L (45-117); Anion Gap 9 (5-15); BUN 11 mg/dL (7-18); BUN/Creat Ratio 10.2 RATIO (10-20); Calcium,Total 9.3 mg/dL (8.5-10.1); Chloride 99 mmol/L (98-107); Creatinine, Serum 1.08 mg/dL (0.70-1.30); EST Glomerular Filtration Rate 78 mL/min (>60); Est Glom Filt Rate - Afr Amer 94 mL/min (>60); Estimated Creatinine Clearance 84.56 ml/min; Globulin 3.5 g/dL (2.2-4.2); Glucose 146 mg/dL (74-106); Potassium 3.2 mmol/L (3.5-5.1); Sodium Level 136 mmol/L (136-145)
[2024-06-22 19:00] VITALS: BP 155/95; PULSE 67; RESP 13; O2SAT 99
[2024-06-22 20:50] LABS: Squamous Epithelial Cells - UA 0 SEEN /hpf (0-5); White Blood Cells 0 SEEN /hpf (0-5)
--- NOTE | 2024-06-22 20:53 | CT_ITS ---
PROCEDURE: ABDOMEN/PELVIS WITHOUT CONT REASON FOR EXAM: Kidney stone. Abdominal pain. TECHNIQUE: Abdomen and pelvis CT without intravenous contrast. Coronal and sagittal 2D reformatted images were provided for better evaluation. COMPARISON: CT abdomen/pelvis from 11/09/2022. FINDINGS: Lung bases are clear. The liver is mildly enlarged measuring 18 cm in the CC dimension. Gallbladder, spleen, pancreas, biliary system, and adrenal glands are unremarkable within the limits of a noncontrast exam. Abdominal aorta demonstrates a normal caliber. No renal or ureteral stones are present bilaterally. No hydronephrosis or hydroureter is present bilaterally. There is a small fat containing umbilical hernia. Urinary bladder is underdistended. Prostate calcifications are present. There are small fat containing bilateral inguinal hernias. No colonic obstruction or pericolonic inflammatory changes are present. There are some colonic diverticula without diverticulitis. There is [id number] retained stool in the colon. Appendix is unremarkable. Small bowel demonstrates a normal caliber. No free air or free fluid is identified. Evaluation of the osseous structures demonstrates no acute findings. There is a transitional segment at the lumbosacral junction with lumbarization of S1 and rudimentary disc at S1-S2. There is a disc bulge at L5-S1. CT/Abdomen/Pelvis without Cont IMPRESSION: 1. No renal/ureteral stones or evidence of obstructive uropathy bilaterally. 2. Mild colonic diverticulosis without diverticulitis. 3. Mild to moderate retained stool in the colon without obstruction. 4. Additional findings as above. One or more dose reduction techniques were used (e.g., Automated exposure contr ol, adjustment of the mA and/or kV according to patient size, use of iterative reconstruction technique). Reading Location: [facility]
[2024-06-22 20:59] LABS: Color, Urine Yellow (Yellow); Glucose, Dipstick Normal (Normal); Ketone-Dipstick Negative (Negative); Leukocyte Esterase-Dipstick 25 /ul (Negative); Nitrite-Dipstick Negative (Negative); Occult Blood-Urine 10 /ul (Negative); Protein-Dipstick 30 mg/dl (Negative); Urine Clarity Clear (Clear); Urine Urobilinogen 1 mg/dl (Normal)
[2024-06-22 21:00] VITALS: BP 151/92; PULSE 87; RESP 18; O2SAT 98
--- NOTE | 2024-06-22 21:03 | EX.ED.DYSGE1 ---
HPI History of Present Illness Chief Complaint: Abd Pain Detail of Chief Complaint: Right-sided abdominal pain with nausea and vomiting x 1 yesterday and x 1 t Informant: patient Onset/Context/Timing Onset: Weeks Context: Sudden Onset Timing: Intermittent Quality: Pain Location: Varies, this episode right flank radiating anteriorly Current Severity: Moderate Maximum Severity: Severe Worsened by: Nothing specific Relieved by: Nothing Associated Symptoms Associated Symptoms: Patient was unaware that he had gross hematuria. Narrative Narrative: Patient is a 48-year-old male. He has an appointment see Dr. Young for abdominal pain. He was last seen in April. He had an extensive workup which was unremarkable. He does have history of alcohol use. He denies history of pancreatitis. He denies black or maroon-colored stool. He denies hematemesis or coffee-ground emesis. He has no history of renal ureterolithiasis. He denies fever, chills night sweats. He denies headache, visual, ocular auditory symptoms. He denies chest pain of any type he denies respiratory symptoms. Prior similar symptoms: Yes (He has never had hematuria prior to this visit) Recent Illness/Hospitalization: No PFSH PFSH Medical History Asthma Medical History no medical history Home Medications ?Medication ?Instructions ?Recorded ?Last Taken ?Type omeprazole 40 mg capsule,delayed 40 mg PO DAILY #30 caps 04/23/24 Unknown Rx release ondansetron 4 mg disintegrating 4 mg PO Q8H PRN PRN Nausea #10 tabs 04/23/24 Unknown Rx tablet Allergy/AdvReac Type Severity Reaction Status Date / Time No Known Allergies Allergy Verified 06/22/24 15:07 Family History no significant family his Surgical History no surgical history Social History Smoking Status: Light Smoker (<10/day) ROS ROS ED Constitutional Constitutional ED: Denies chills, fever(s), subjective, sweats or weight loss Eyes Eyes: Denies blurry vision, change in vision or diplopia ENT ENT ED: Denies ear pain, rhinorrhea or sore throat Cardiovascular Cardiovascular: Denies chest pain, orthopnea, palpitations, paroxysmal nocturnal dyspnea or racing heartbeat Respiratory/Chest Respiratory/Chest: Denies cough, dyspnea, dyspnea on exertion, orthopnea or paroxysmal nocturnal dyspnea Gastrointestinal Gastrointestinal: Reports abdominal pain, nausea and vomiting; Denies constipation, diarrhea or melena Genitourinary Genitourinary ED: Reports hematuria; Denies dysuria or urinary frequency Musculoskeletal Musculoskeletal: Denies arthralgias, back pain, myalgias or neck pain Integumentary Denies abscess, Abrasions or rash Neurologic Neurologic: Denies weakness Psychiatric Psychiatric: Denies anxiety or depression Endocrine Endocrinology: Denies cold intolerance or heat intolerance Hematologic/Lymphatic Hematologic/Lymphatic: Reports systems reviewed and no addt'l complaints, except as documented EXAM Physical Exam Const Vital Signs: 06/22/24 15:03 06/22/24 19:00 06/22/24 21:00 Temperature 98.4 F Temperature Source Oral Pulse Rate 89 67 87 Respiratory Rate 16 13 18 Blood Pressure 146/97 H 155/95 H 151/92 H Blood Pressure Mean 113 115 111 Pulse Ox 99 99 98 Oxygen Delivery Method Room Air Room Air Room Air Positive well nourished and well developed General Appearance ED: well developed and NAD; Negative for pallor HEENT Reports moist mucous membranes HEENT Narrative: Head is atraumatic normocephalic. Ears normal. Nares patent. Posterior pharynx is normal. Eyes PERRL and EOMs intact bilaterally General Eye ED: Negative for pale conjunctiva or scleral icterus Neck no lymphadenopathy, supple and no JVD Chest Wall inspection of chest normal and palpation of chest normal Resp normal respiratory effort and clear to auscultation bilaterally Cardio regular rate, regular rhythm, S1 normal heart sound, S2 normal heart sound and no murmurs GI normal to inspection, nondistended, normoactive bowel sounds, non-distended and no masses; Negative for non-tender or hepatosplenomegaly Palpation: soft and tender other (There is tenderness to deep palpation over the right kidney.) Back/Spine General Back: CVA tenderness right Thoracic Spine / Upper Back: Negative for thoracic spinal tenderness Lumbar Spine / Lower Back: Negative for lumbar spinal tenderness Extremity normal to inspection General Extremety ED: Negative for edema or tenderness General Extremity: Negative for edema Neuro oriented x3, CN's II-XII intact bilaterally and no sensory deficits noted Sensorium / Orientation: alert Motor Exam: strength 5/5 throughout Psych mental status grossly normal Skin no rashes or lesions noted, no wounds and skin turgor normal General Skin Exam: Negative for jaundice or pallor Trauma: Negative for abrasion MDM MDM MDM Narrative Medical decision making narrative: Patient with right flank pain and hematuria. Suspect this represents ureteral stone. He was seen in April and scheduled see Dr. Young. He also complains of periumbilical pain which is different Lab Data Attestation: I reviewed the patient's lab results. Lab results narrative: CBC is unremarkable. There is lymphocytosis. Basic metabolic panel is unremarkable. Glucose is 146 with normal CO2 anion gap. Total bili slightly elevated 2.2. AST and ALT as well as alkaline phosphatase are all normal. Labs: Laboratory Results - last 24 hr 06/22/24 06/22/24 17:09 20:33 WBC 7.7 RBC 5.73 Hgb 16.6 H Hct 48.6 MCV 84.8 MCH 29.0 MCHC 34.2 RDW Std Deviation 43.5 RDW Coeff of Demarco 14.1 Plt Count 398 MPV 9.8 Immature Gran % (Auto) 0.300 Neut % (Auto) 35.0 L Lymph % (Auto) 54.1 H [place] % (Auto) 8.8 Eos % (Auto) 1.2 Baso % (Auto) 0.6 Absolute Neuts (auto) 2.7 Absolute Lymphs (auto) 4.17 Nucleated RBC % 0 Sodium 136 Potassium 3.2 L Chloride 99 Carbon Dioxide 28.0 Anion Gap 9 BUN 11 Creatinine 1.08 Estim Creat Clear Calc 84.56 Est GFR (MDRD) Af Amer 94 Est GFR (MDRD) Non-Af 78 BUN/Creatinine Ratio 10.2 Glucose 146 H Calcium 9.3 Total Bilirubin 2.20 H AST 12 L ALT 26 Alkaline Phosphatase 88 Total Protein 8.0 Albumin 4.5 Globulin 3.5 Albumin/Globulin Ratio 1.3 Urine Color Yellow Urine Clarity Clear Urine pH 6.0 Ur Specific [place] 1.020 Urine Protein 30 H Urine Glucose (UA) Normal Urine Ketones Negative Urine Occult Blood 10 H Urine Nitrite Negative Urine Bilirubin 1 H Urine Urobilinogen 1 H Ur Leukocyte Esterase 25 H Urine RBC 0 SEEN Urine WBC 0 SEEN Ur Squamous Epith Cells 0 SEEN Urine Bacteria 1+ Urine Mucus 2+ Urinalysis was interpreted as clear and yellow. The urine was clear but it is not yellow it is red similar to a white symptom dull in color. Micro is negative for red cells and WBC cells. Radiography Diagnostic Testing: Clinical Impression(s) from Imaging Studies Abdomen/Pelvis CT 06/22/24 20:53 IMPRESSION: 1. No renal/ureteral stones or evidence of obstructive uropathy bilaterally. 2. Mild colonic diverticulosis without diverticulitis. 3. Mild to moderate retained stool in the colon without obstruction. 4. Additional findings as above. One or more dose reduction techniques were used (e.g., Automated exposure control, adjustment of the mA and/or kV according to patient size, use of iterative reconstruction technique). Reading Location: [facility] CT was reviewed by me. Agree there is no evidence of renal or ureteral stone. Radiologist read mild colonic diverticulosis and moderate retained stool. Suspect patient is obstipated. Treatment and Re-Evaluation :: Patient was informed of his results. Plan is bowel prep and starting the morning to evacuate his fecal stasis. Discharge Plan Triage Chief Complaint: Abd Pain ED Provider: Zack Ruiz Dx/Rx/DC Orders Clinical Impression: Obstipation, Hematuria, Elevated blood-pressure reading without diagnosis of hypertension Instructions: ED Constipation (Adult), ED Hypertension, To Be Confirmed Prescriptions: No Action ondansetron 4 mg tablet,disintegrating 4 mg PO Q8H PRN PRN (Reason: Nausea) Qty: 10 0RF omeprazole 40 mg capsule,delayed release(DR/EC) 40 mg PO DAILY Qty: 30 1RF Primary Care Provider: Josephine Wills Referrals: Josephine Wills MD [Primary Care Provider] - 1-2 Weeks Activity Restrictions/Additional Instructions: Tomorrow morning when you wake drink 10 ounces of magnesium citrate 4 hours after you drink the magnesium citrate 1 cap of MiraLAX in your favorite beverage. Continue 1 cap of MiraLAX in your favorite beverage every hour until you start to have results. Print Language: Latvian Disposition Disposition: Home, Self Care
[2024-06-22 21:08] LABS: Urine Bilirubin Dipstick 1 mg/dL (Negative)
[2024-06-22] MEDS: Ondansetron 4 MG/2 ML Vial IV (21:11)
[2024-06-22] MEDS: Ketorolac 15 MG/ML Vial IV (21:11)
[2024-06-22 21:20] LABS: Bacteria 1+ /hpf (None Seen); Mucous, Urine 2+ /hpf (<or=2+); Red Blood Cells-Urine 0 SEEN /hpf (0-5)
[2024-06-22 22:15] VITALS: BP 151/92; PULSE 87; RESP 18; TEMP 36.9; O2SAT 98
== END 2024-06-22 22:16 | disposition home or self-care (01) ==
PROVIDERS: Emergency Provider Emergency Medicine; PCP Internal Medicine; Visit Provider Emergency Medicine
DX: K59.00 Constipation, unspecified (principal); R31.9 Hematuria, unspecified; R03.0 Elevated blood-pressure reading, without diagnosis of hypertension; F17.200 Nicotine dependence, unspecified, uncomplicated
CPT/HCPCS: 74176; 80053; 81001; 85025; 96374; 96375; 99282; A4216; J2405

== ENCOUNTER 2024-07-08 13:09 | Outpatient (CLI) | payer BC, SELFPAY ==
[2024-07-08 14:22] LABS: AST(SGOT) 17 U/L (<=37); Alanine Aminotransfer ALT/SGPT 22 U/L (<=46); Alkaline Phosphatase 82 U/L (40-129); Bilirubin, Direct 0.12 mg/dL (0.00-0.30); Globulin 1.8 g/dL (2.2-4.2); Hepatitis B Surface Antibody Nonreactive; Hepatitis B Surface Antigen Nonreactive (Nonreactive); Hepatitis C Antibody Nonreactive (Nonreactive); Protein, Total 5.9 g/dL (5.9-8.4); Total Bilirubin 0.26 mg/dL (0.00-1.30)
[2024-07-10 05:07] LABS: Hepatitis A AB, Total Negative (Negative); Hepatitis B Core Ab Total Negative (Negative)
== END 2024-07-08 23:59 | disposition home or self-care (01) ==
PROVIDERS: PCP Internal Medicine; Referring Provider Nurse Practitioner Acute Care; Visit Provider Nurse Practitioner Acute Care
DX: R19.7 Diarrhea, unspecified (principal); R63.4 Abnormal weight loss; R63.0 Anorexia; R12 Heartburn; R10.12 Left upper quadrant pain; R16.0 Hepatomegaly, not elsewhere classified
CPT/HCPCS: 36415; 80076; 86704; 86706; 86708; 86803; 87340

== ENCOUNTER 2024-08-24 12:27 | Day surgery (SDC) | payer BC, SELFPAY ==
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
[2024-08-24] VITALS (9 sets, daily range): BP systolic 92–126; BP diastolic 64–73; PULSE 62–72; RESP 16–18; TEMP 36.5–36.7; O2SAT 94–100; BMI 26.5
--- NOTE | 2024-08-24 13:30 | EGD_PTH ---
PATIENT: PRITI GONGORA LOC: EN U#:[id number] AGE/SX: 48/M ROOM: RE08/24/[address]: Dr. Erik Young DO : 1975 BED: DIS: 08/24/2024 SPEC #: [id number] RECD: 08/25/24 09:44 STATUS: IZABELLA NASIR #: [id number] LASHAWN: 08/24/24 13:[address]: Erik Young DEPT: SURGICAL PATHOLOGY RECD BY: Carrie Nugent ENTERED: 08/25/24 10:17 SP TYPE: EGD BIOPSY OT DR: Dr. Josephine Wills MD Tissues: A - Gastric mucous membrane B - Gastric mucous membrane C - Duodenum, NOS D - Esophagus, NOS Procedures: Immunohistochemical Stains Surgery Specimen Level IV HEADER OPERATION: EGD with biopsy PRE-OP DIAGNOSIS: Abdominal pain, diarrhea, weight loss, loss of appetite, heartburn, left upper quadrant pain, hepatomegaly TISSUE SUBMITTED: A- Gastric body biopsy, B- Gastric antrum biopsy, C- Duodenum biopsy, D- Distal esophagus biopsy MICROSCOPIC DIAGNOSIS A. Stomach, body, biopsy: * Oxyntic mucosa with features of reactive gastropathy. * Negative for Helicobacter-like organisms (H&E). B. Stomach, antrum, biopsy: * Antral mucosa with features of reactive gastropathy. * IHC negative for H pylori organisms. C. Small bowel, duodenum, biopsy: * Normal villous architecture with Lidia gland hyperplasia and gastric mucin cell metaplasia, suggestive of peptic injury. * Negative for increased intraepithelial lymphocytes. D. Distal esophagus, biopsy: * Cardio-oxyntic mucosa negative for goblet cell metaplasia. * No squamous mucosa observed. MICROSCOPIC DESCRIPTION Slides are reviewed. All matched controls reacted appropriately. These tests were developed and their performance characteristics determined by [facility]. They may not have been cleared or approved by the U.S. Food and Drug Administration. The FDA has determined that such clearance or approval is not necessary.? The above immunohistochemical/dualISH?markers are ordered and reviewed by the Pathologist. GROSS DESCRIPTION A. Received in formalin in a container labeled with the patient's name, date of , and gastric body biopsy are 2 lozada-pink fragments of mucosal tissue, each measuring 0.3 x 0.3 x 0.3 cm. Submitted in toto in A1. B. Received in formalin in a container labeled with the patient's name, date of , and gastric antrum biopsy for H. pylori and pathology is a 0.7 x 0.2 x 0.2 cm strip of lozada-pink mucosal tissue. Submitted in toto in B1. C. Received in formalin in a container labeled with the patient's name, date of , and duodenum biopsy are multiple lozada-pink fragments of mucosal tissue measuring 1.3 x 0.6 x 0.2 cm in aggregate. Submitted in toto in C1. D. Received in formalin in a container labeled with the patient's name, date of , and distal esophagus biopsy are 2 lozada-pink fragments of mucosal tissue measuring 0.3 x 0.2 x 0.2 cm and 0.4 x 0.3 x 0.2 cm. Submitted in toto in D1. [facility] 08/24/2024 CPT:72534l6,40690
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
--- NOTE | 2024-08-24 13:53 | PCM.HP.STD ---
HPI - General General Date of Admission: 08/24/24 Date of Service: 08/24/24 HPI Narrative PRITI GONGORA, is a 48 M who presents for the evaluation of abdominal pain. He was seen in the emergency department on 06/22/2024 with complaints of right sided ABD pain N/V. His PMH is significant for alcohol abuse and pancreatitis. LABS 06/22/2024 HGB 16.6, K+ 3.2, T. Bili 2.20, PLT 398, Albumin 4.5 04/23/2024 PT/INR WNL Abdomen/Pelvis CT 06/22/24 20:53 IMPRESSION: 1. No renal/ureteral stones or evidence of obstructive uropathy bilaterally. 2. Mild colonic diverticulosis without diverticulitis. 3. Mild to moderate retained stool in the colon without obstruction. 4. Additional findings as above. EGD 03/03/2023 - the proccedure was aborted due to the extreme difficulty COLON 03/03/2023 - diverticulosis of the sigmoid colon - recall 5 years - performed with difficulty due to patients inability to cooperate ALL PROCEDURES SHOULD BE DONE MAC ONLY! 06/22/2024 ED recommendations: Activity Restrictions/Additional Instructions: Tomorrow morning when you wake drink 10 ounces of magnesium citrate 4 hours after you drink the magnesium citrate 1 cap of MiraLAX in your favorite beverage. Continue 1 cap of MiraLAX in your favorite beverage every hour until you start to have results. He reports no alcohol intake - last drink was 04/17/2024 - he is a smoker - NSAIDS on occasion - denies any caffeine - reports his water intake is good - he is also drinking all natural peach juice - why would they put me on a medicine for ulcers - denies any N/V - ever since he moved his bowels - reports he is now able to eat - states he could not eat when he was not feeling well - over the past two months he reports his bowel movements were erratic, alternating between loose and formed - states in April he had a black and formed - reports he was taking Omeprazole - denies any dysphagia - reports he lost 10lbs in the past few months - denies any reflux - reports his bowels started moving right away and is continuing to drink Miralax every hour [facility] Medical History Alcohol use Marijuana use Gastric reflux Smoker Back problem Asthma Home Medications ?Medication ?Instructions ?Recorded ?Last Taken ?Type multivitamin with minerals-folic 1 tab PO DAILY 08/23/24 08/22/24 History acid 400 mcg-lycopene 370 mcg tablet Allergy/AdvReac Type Severity Reaction Status Date / Time No Known Allergies Allergy Verified 08/24/24 12:45 Family History Other Colon cancer Epilepsy Seizures Surgical History History of colonoscopy Social History Smoking Status: Current every day smoker (Patient did not smoke today.) tobacco type: cigars alcohol intake: never substance use type: marijuana ROS Constitutional Constitutional: Denies fatigue, fever(s), poor appetite, weight gain or weight loss Gastrointestinal Gastrointestinal: Denies belching, bloating, change in bowel habits, change in stool character, chewing difficulty, coffee ground emesis, constipation, cramping, diarrhea, dyspepsia, dysphagia, early satiety, excessive flatus, fecal incontinence, heartburn, hematemesis, hematochezia, hemorrhoids, loose stools, melena, nausea, odynophagia, rectal bleeding, tenesmus, vomiting or weight changes Vital Signs Vital Signs Vital Signs: 08/24/24 12:45 08/24/24 12:45 08/24/24 13:47 Temperature 97.7 F L 97.7 F L Temperature Source Temporal Pulse Rate 64 64 Respiratory Rate 18 18 Respiratory Pattern Normal Blood Pressure 126/73 H 126/73 H Blood Pressure Mean 90 Blood Pressure Source Monitor Blood Pressure Position Semi-Fowlers Blood Pressure Location Left Arm Pulse Ox 100 100 Oxygen Delivery Method Room Air Room Air Weight Weight: 179 lb 14.355 oz Body Mass Index (BMI) 26.5 Physical Exam Const alert, oriented x3, no apparent distress and healthy appearing General Appearance: cooperative GI normal to inspection, nondistended, normoactive bowel sounds, soft to palpation, non-tender and non-distended Percussion: normal to percussion Rectal Exam: deferred Assessment & Plan Assessment/Plan (1) Hepatomegaly: (2) LUQ pain: (3) Heartburn: (4) Loss of appetite: PLAN: Assessment and Plan Assessment and Plan (1) Abdominal pain: (2) Diarrhea: Status: Acute (3) Weight loss: Status: Acute (4) Loss of appetite: Status: Acute (5) Heartburn: Status: Acute (6) LUQ pain: Status: Acute (7) Hepatomegaly: Status: Acute Orders: Orders Liver Profile Today R10.12 - Left upper quadrant pain, R12 - Heartburn, R16.0 - Hepatomegaly, not elsewhere classified, R19.7 - Diarrhea, unspecified, R63.0 - Anorexia, R63.4 - Abnormal weight loss Hepatitis A AB, Total Today R10.12 - Left upper quadrant pain, R12 - Heartburn, R16.0 - Hepatomegaly, not elsewhere classified, R19.7 - Diarrhea, unspecified, R63.0 - Anorexia, R63.4 - Abnormal weight loss Hepatitis B Core Ab Total Today R10.12 - Left upper quadrant pain, R12 - Heartburn, R16.0 - Hepatomegaly, not elsewhere classified, R19.7 - Diarrhea, unspecified, R63.0 - Anorexia, R63.4 - Abnormal weight loss Hepatitis B Surface Antibody Today R10.12 - Left upper quadrant pain, R12 - Heartburn, R16.0 - Hepatomegaly, not elsewhere classified, R19.7 - Diarrhea, unspecified, R63.0 - Anorexia, R63.4 - Abnormal weight loss Hepatitis B Surface Antigen Today R10.12 - Left upper quadrant pain, R12 - Heartburn, R16.0 - Hepatomegaly, not elsewhere classified, R19.7 - Diarrhea, unspecified, R63.0 - Anorexia, R63.4 - Abnormal weight loss Hepatitis C Antibody 2 Weeks R10.12 - Left upper quadrant pain, R12 - Heartburn, R16.0 - Hepatomegaly, not elsewhere classified, R19.7 - Diarrhea, unspecified, R63.0 - Anorexia, R63.4 - Abnormal weight loss Miscellaneous Lab Procedure Today R10.12 - Left upper quadrant pain, R12 - Heartburn, R16.0 - Hepatomegaly, not elsewhere classified, R19.7 - Diarrhea, unspecified, R63.0 - Anorexia, R63.4 - Abnormal weight loss Elastography US 1st Target Les Today R10.12 - Left upper quadrant pain, R12 - Heartburn, R16.0 - Hepatomegaly, not elsewhere classified, R19.7 - Diarrhea, unspecified, R63.0 - Anorexia, R63.4 - Abnormal weight loss Medications: Discontinued polyethylene glycol 3350 (Miralax) Discontinued Reason: Order Completed 4 grams PO .QHR omeprazole Discontinued Reason: Pt no longer taking 40 mg PO DAILY 30 caps 1RF ondansetron Discontinued Reason: Pt no longer taking 4 mg PO Q8H PRN PRN 10 tabs 0RF Nausea Plan 48y/o male presents for consultation with complaints of abdominal pain. He was seen in the emergency department on 06/22/2024 with complaints of right sided ABD pain N/V. His PMH is significant for alcohol abuse and pancreatitis. He complains of loss of appetite, LUQ pain, weight loss, and heartburn. He was seen in ED April 2024 and started on Omeprazole, he reports his symptoms only continued to progress. He developed constipation with occasional loose stools. Due to ongoing symptoms he was seen in ED again on 06/22/2024 and reports Omeprazole was discontinued. He reports an improvement in symptoms with resolution of constipation. He has been drinking Miralax hourly for the past 48 hours. He misunderstood the ED recommendation to discontinue hourly Miralax once he had results. He will discontinue Miralax now and start Metamucil daily. We have discussed use of Omeprazole and he prefers to only resume if he has worsening symptoms. He is agreeable to proceeding with EGD, US and labs. Patient Instructions: - Discontinue Miralax, may use as needed for constipation - Metamucil 2tsp once a day in 8 ounces of water - Increase PO intake - EGD to r/o esophagitis, gastritis, PUD - Resume Omeprazole - US/Elastography - Complete labs in 2 weeks
--- NOTE | 2024-08-24 14:28 | PCM.POST.ANE ---
Anesthesia: Postop Eval I Current Vital Signs Temperature: 98 F Pulse Rate: 72 Blood Pressure: 94/65 Respiratory Rate: 16 Pulse Ox: 95 Oxygen Delivery Method: Room Air Assessment Airway patent: Yes Spontaneous unlabored respirations: Yes Mental status: Asleep nausea: No Vomiting: No Anesthesia Complication: No Fluid Hydration Crystalloid volume administer (ml): 30 Total IV fluid infused: 30 Progress Note Anesthesia document: Postop Eval 1 completed: Yes
--- NOTE | 2024-08-24 14:34 | OP.EGD_ITS ---
Patient Name: Wolf Milton Procedure Date: 08/24/2024 1:59 PM Date of : 1975 Age: 48 Procedure: Upper GI endoscopy Indications: Epigastric abdominal pain, Functional Dyspepsia, Heartburn Providers: Erik Young DO Referring MD: Josephine Wills MD Medicines: Monitored Anesthesia Care Patient Profile: This is a 48 year old male. Refer to note in patient chart for documentation of history and physical. Patient has symptoms of chronic abdominal cramping, acute abdominal distention and acute epigastric abdominal pain. Complications: No immediate complications. Procedure: Pre-Anesthesia Assessment: - Prior to the procedure, a History and Physical was performed, and patient medications and allergies were reviewed. The patient is competent. The risks and benefits of the procedure and the sedation options and risks were discussed with the patient. All questions were answered and informed consent was obtained. Patient identification and proposed procedure were verified by the physician in the pre-procedure area. Mental Status Examination: alert and oriented. Airway Examination: normal oropharyngeal airway and neck mobility. Respiratory Examination: clear to auscultation. CV Examination: normal. Prophylactic Antibiotics: The patient does not require prophylactic antibiotics. Prior Anticoagulants: The patient has taken no anticoagulant or antiplatelet agents. ASA Grade Assessment: II - A patient with mild systemic disease. After reviewing the risks and benefits, the patient was deemed in satisfactory condition to undergo the procedure. The anesthesia plan was to use monitored anesthesia care (MAC). Immediately prior to administration of medications, the patient was re-assessed for adequacy to receive sedatives. The heart rate, respiratory rate, oxygen saturations, blood pressure, adequacy of pulmonary ventilation, and response to care were monitored throughout the procedure. The physical status of the patient was re-assessed after the procedure. After obtaining informed consent, the endoscope was passed under direct vision. Throughout the procedure, the patient's blood pressure, pulse, and oxygen saturations were monitored continuously. The gastroscope was introduced through the mouth, and advanced to the second part of duodenum. The upper GI endoscopy was accomplished without difficulty. The patient tolerated the procedure well. Scope In: 2:08:48 PM Scope Out: 2:15:10 PM Total Procedure Duration Time 0 hours 6 minutes 22 seconds Findings: The Z-line was irregular and was found 40 cm from the incisors. Biopsies were taken with a cold forceps for histology. Verification of patient identification for the specimen was done by the nurse. Estimated blood loss was minimal. The Z-line was irregular and was found 39 cm from the incisors. Biopsies were taken with a cold forceps for histology. Verification of patient identification for the specimen was done. Estimated blood loss was minimal. Patchy mild inflammation characterized by congestion (edema) and erythema was found in the gastric body. Biopsies were taken with a cold forceps for histology. Verification of patient identification for the specimen was done. Estimated blood loss was minimal. Biopsies were taken with a cold forceps for Helicobacter pylori testing. Verification of patient identification for the specimen was done. Estimated blood loss was minimal. Patchy moderate inflammation characterized by congestion (edema), erythema and granularity was found in the duodenal bulb. Biopsies were taken with a cold forceps for histology. Verification of patient identification for the specimen was done. Estimated blood loss was minimal. A mild Schatzki ring was found at the gastroesophageal junction. Impression: - Z-line irregular, 40 cm from the incisors. Biopsied. - Z-line irregular, 39 cm from the incisors. Biopsied. - Chronic gastritis. Biopsied. - Bile duodenitis. Biopsied. Recommendation: - Discharge patient to home. - Resume previous diet. - Continue present medications. - Await pathology results. Procedure Code(s): --- Professional --- 33607, Esophagogastroduodenoscopy, flexible, transoral; with biopsy, single or multiple CPT copyright 2021 [employer]. All rights reserved. The codes documented in this report are preliminary and upon certified coder review may be revised to meet current compliance requirements. Erik Young DO 08/24/2024 2:33:31 PM This report has been signed electronically. Number of Addenda: 0 Note Initiated On: 08/24/2024 1:59 PM
--- NOTE | 2024-08-24 14:34 | OP.CCLET_ITS ---
08/24/2024 Josephine Wills MD [address] [address] [place] [address] Re : Upper GI endoscopy procedure for Wolf Milton Dear Dr. Wills This procedure was performed on Saturday, August 24, 2024. My impressions and recommendations are as follows: Impressions : - Z-line irregular, 40 cm from the incisors. Biopsied. - Z-line irregular, 39 cm from the incisors. Biopsied. - Chronic gastritis. Biopsied. - Bile duodenitis. Biopsied. Recommendations : - Discharge patient to home. - Resume previous diet. - Continue present medications. - Await pathology results. My findings are described in the full procedure note, which is enclosed. If I can be of further assistance, please feel free to contact me at . Sincerely, Erik Young, 08/24/2024 2:33:31 PM This report has been signed electronically.
--- NOTE | 2024-08-24 16:17 | PCM.POSTANE2 ---
Anesthesia Postop Eval I Sum Postop Eval Completion status Anesthesia document: Postop Eval 1 completed: Yes Anesthesia Postop Eval I Summary Anesthesia Postop Eval I Summary: Anesthesia Postop Eval I: Assessment Summary Airway patent Yes 08/24/24 14:29 [email or web address] Spontaneous unlabored Yes 08/24/24 14:29 [email or web address] respirations Mental status Asleep 08/24/24 14:29 [email or web address] nausea No 08/24/24 14:29 [email or web address] Vomiting No 08/24/24 14:29 [email or web address] Anesthesia Postop Eval I: Fluid Summary Crystalloid volume administer 30 08/24/24 14:29 [email or web address] (ml) Colloids volume administered ( ml) Blood Product volume administered (ml) Total IV fluid infused 30 08/24/24 14:29 [email or web address] Anesthesia Postop Eval I: Summary Notes Anesthesia Complication No 08/24/24 14:29 [email or web address] Anesthesia Complication Comment: Post-operative progress note Anesthesia: Postop Eval II Evaluation Mental status: Awake and Calm Pain Level: 0 nausea: No Vomiting: No Complications Anesthesia Complication: No
== END 2024-08-24 15:28 | disposition home or self-care (01) ==
LOC: EN 12:35 → AC 12:36
PROVIDERS: PCP Internal Medicine; Referring Provider Internal Medicine; Visit Provider Internal Medicine Gastroenterology
PROC: 0DJ08ZZ Inspection of Upper Intestinal Tract, Via Natural or Artificial Opening Endoscopic (ICD-10-PCS; CPT 43235; principal; 2024-08-24 13:25)
DX: K22.2 Esophageal obstruction (principal); K29.80 Duodenitis without bleeding; K29.50 Unspecified chronic gastritis without bleeding; K31.89 Other diseases of stomach and duodenum; K21.9 Gastro-esophageal reflux disease without esophagitis; R10.12 Left upper quadrant pain; R16.0 Hepatomegaly, not elsewhere classified; R63.4 Abnormal weight loss; F17.290 Nicotine dependence, other tobacco product, uncomplicated; Z68.26 Body mass index [BMI] 26.0-26.9, adult; Z79.899 Other long term (current) drug therapy
CPT/HCPCS: 43239; 88305; 88342; A4216; J2405

== ENCOUNTER → 2024-09-27 | Outpatient (CLI) | payer BC, SELFPAY ==
--- NOTE | 2024-09-27 08:52 | US_ITS ---
PROCEDURE: ABD LIMITED W/ ELASTOGRAPHY REASON FOR EXAM: ELEVTAED LIVER ENZYMES COMPARISON: Prior study dated June 22, 2024. TECHNIQUE: Right upper quadrant abdominal ultrasound. [email or web address] ElastQ Imaging shear wave elastography for non-invasive assessment of liver tissue stiffness. [employer] EPIQ Elite. FINDINGS: LIVER: Size: Unremarkable Length: 16.6 cm Echotexture: Diffusely echogenic suggesting fatty infiltration Contour: Normal Lesions: None identified Elastography: EQI Med: 4.6 kPa EQI Med [place]: 1.24 m/s IQR/Med: 16 %* GALLBLADDER: Normal COMMON BILE DUCT: Normal measuring 2 mm . PANCREAS: Normal Visualized portions of the right kidney are unremarkable. No right upper quadrant ascites. US/ABD Limited w/ Elastography IMPRESSION: NO TO MILD HEPATIC FIBROSIS Reference Values: SRU <1.37 m/s (5.7kPa): No to mild fibrosis 1.37 m/s - 2.2 m/s: Moderate to severe fibrosis >2.2 m/s (15kPa): Significant fibrosis / cirrhosis METAVIR Score F2 or higher: 1.34 m/s (5.7kPa) F3 or higher: 1.55 m/s (7.3kPa) F4: 1.80 m/s (10kPa) * If the IQR/Med is >30%, the variance in the measurements is a large and the a ccuracy of the measurement may be in question. Reading Location: [place] [address]
== END | disposition home or self-care (01) ==
LOC: US 08:49
PROVIDERS: PCP Internal Medicine; Referring Provider Nurse Practitioner Acute Care; Visit Provider Nurse Practitioner Acute Care
DX: R74.8 Abnormal levels of other serum enzymes (principal)
CPT/HCPCS: 76705; 76981